=== PATIENT | female | born 1995 | race Caucasian/White ===

== ENCOUNTER 2016-11-16 22:05 | Emergency (ER) | payer OTHER ==
[2016-11-16 22:13] VITALS: BP 116/65; PULSE 83; RESP 18; TEMP 98.1
--- NOTE | 2016-11-16 22:22 | ED ---
Upper Extremity HPI - General Chief Complaint: Extremity Injury, Upper Stated Complaint: fall/elbow injury Time Seen by Provider: 11/16/16 22:14 Source: patient, RN notes reviewed Mode of arrival: ambulatory Limitations: no limitations - History of Present Illness Initial Comments: 21-year-old female presents to the emergency Department chief complaint of right elbow pain. Patient states that she fell onto her right elbow. Patient states she felt a pop. Patient states now has pain on movement. Patient states he was a slip and fall there is no lightheadedness and dizziness before the fall. Patient denies any head injury or loss of consciousness with fall. Patient states that she was concerned due to her continued symptoms so she thought that she should be evaluated. Patient denies any recent fever, chills, shortness of breath, chest pain, back pain, abdominal pain, nausea vomiting, numbness or tingling, dysuria or hematuria, constipation or diarrhea, headaches or visual changes, or any other current symptoms. Place: outdoors - Related Data Home Medications Medication Instructions Recorded Confirmed Pnv with Ca,No.72/Iron/FA 1 each PO DAILY 06/22/16 07/04/16 [ Plus Tablet] valACYclovir HCL [Valtrex] 500 mg PO DAILY 06/26/16 07/04/16 Previous Rx's Medication Instructions Recorded Ibuprofen [Motrin] 600 mg PO Q6HR PRN #0 tab 07/05/16 Allergies Allergy/AdvReac Type Severity Reaction Status Date / Time amoxicillin Allergy Rash/Hives Verified 11/16/16 22:13 codeine Allergy Unknown Verified 11/16/16 22:13 Penicillins Allergy Rash/Hives Verified 11/16/16 22:13 Review of Systems ROS Statement: Those systems with pertinent positive or pertinent negative responses have been documented in the HPI. ROS Other: All systems not noted in ROS Statement are negative. Past Medical History Past Medical History: No Reported History Additional Past Medical History / Comment(s): HERPES VIRUS, Bipolar History of Any Multi-Drug Resistant Organisms: None Reported Past Surgical History: Tonsillectomy Additional Past Surgical History / Comment(s): Oral Surgery, VTOPx 2 2013,2015 Past Anesthesia/Blood Transfusion Reactions: No Reported Reaction Past Psychological History: Bipolar Smoking Status: Current every day smoker Past Alcohol Use History: None Reported Past Drug Use History: None Reported - Past Family History Father Additional Family Medical History / Comment(s): Heart Disease General Exam - General Exam Comments Initial Comments: General: The patient is awake and alert, in no distress, and does not appear acutely ill. Neck: The neck is supple, there is no tenderness. Cardiovascular: There is a regular rate and rhythm. No murmur, rub or gallop is appreciated. Respiratory: Lungs are clear to auscultation, respirations are non-labored, breath sounds are equal. No wheezes, stridor, rales, or rhonchi. Musculoskeletal: Patient has 2+ pulses throughtout right upper extremity full Range of motion of right shoulder and right elbow and right wrist. Patient has no bony tenderness no deformity no abrasion noted. Neurological: CN II-XII intact, There are no obvious motor or sensory deficits. Coordination appears grossly intact. Speech is normal. Skin: Skin is warm and dry and no rashes or lesions are noted. Psychiatric: Normal mood and affect. Limitations: no limitations Course Vital Signs 11/16/16 22:10 Temperature 98.1 F Pulse Rate 83 Respiratory 18 Rate Blood Pressure 116/65 O2 Sat by Pulse 98 Oximetry Procedures - Orthopedic Splinting/Casting Injury #1 Side: right Upper Extremity Injury Location: elbow Upper Extremity Immobilizer: posterior splint (long arm) Medical Decision Making - Medical Decision Making 21-year-old female presents emergency room chief complaint of right elbow pain. This time patient's x-ray shows suspicion for acute fracture. We discussed ice Motrin Tylenol. We discussed return parameters and follow-up. We discussed all the patient's family's questions. This follow-up with orthopedics. They will be discharged home. - Radiology Data Radiology results: report reviewed, image reviewed Disposition Clinical Impression: Elbow fracture, right Disposition: HOME SELF-CARE Condition: Stable Instructions: Arm Fracture in Adults (ED) Additional Instructions: Please use medication as discussed. Please follow up with family doctor if symptoms have not improved over the next two days. Please return to the emergency room if your symptoms increase or worsen or for any other concerns. Referrals: Tila Porter MD [Primary Care Provider] - 1-2 days Jeramy Mckeon DO [Doctor of Osteopathic Medicine] - 1-2 days Time of Disposition: 22:49
--- NOTE | 2016-11-16 22:47 | XR ---
EXAM: XR Right Elbow Complete, 3 Views CLINICAL HISTORY: Pain after fall. TECHNIQUE: Frontal, lateral and oblique views of the right elbow. COMPARISON: No relevant prior studies available. FINDINGS: Bones/joints: Suspect subtle cortical irregularity along the lateral aspect of the radial head on AP and oblique images suspicious for subtle fracture. No radiographic evidence of additional fracture. No dislocation. Soft tissues: Small right elbow joint effusion is present. Mild soft tissue swelling. IMPRESSION: Small right elbow joint effusion is present which raises suspicion for fracture. Suspect subtle cortical irregularity along the lateral aspect of the radial head on AP and oblique images suspicious for subtle fracture. Correlate for point tenderness at this location. No radiographic evidence of additional fracture.
== END 2016-11-16 22:58 | disposition home or self-care (01) ==
LOC: EC 22:05
DX: S42.401A Unspecified fracture of lower end of right humerus, initial encounter for closed fracture (principal); F17.200 Nicotine dependence, unspecified, uncomplicated; Z88.0 Allergy status to penicillin; Z88.5 Allergy status to narcotic agent; Z79.899 Other long term (current) drug therapy; W01.0XXA Fall on same level from slipping, tripping and stumbling without subsequent striking against object, initial encounter
CPT/HCPCS: 29105; 99283

== ENCOUNTER 2016-12-13 15:12 | Inpatient (IN) | payer OTHER, MEDICAID ==
--- NOTE | 2016-12-13 15:44 | ED ---
Psych HPI - General Chief Complaint: Psychiatric Symptoms Stated Complaint: Evaluation/Drug use Time Seen by Provider: 12/13/16 15:34 Source: patient, RN notes reviewed Mode of arrival: ambulatory Limitations: no limitations - History of Present Illness Initial Comments: This a 21-year-old female presents emergency department for psychiatric evaluation. Patient states she is really depressed states that she wants to kill herself at this time. Patient states that she has felt this way for several years. Patient does abuse heroin daily. Patient states that she did "when she had her baby was started approximately one month after delivering. Patient denies any alcohol abuse. Patient has had several possible ways of hurting herself. Patient denies any homicidal thoughts. Denies any physical complaints other than withdrawing at this time. - Related Data Home Medications Medication Instructions Recorded Confirmed No Known Home Medications [No 12/13/16 12/13/16 Known Home Medications] Allergies Allergy/AdvReac Type Severity Reaction Status Date / Time amoxicillin Allergy Rash/Hives Verified 12/13/16 15:59 codeine Allergy Unknown Verified 12/13/16 15:59 Penicillins Allergy Rash/Hives Verified 12/13/16 15:59 Review of Systems ROS Statement: Those systems with pertinent positive or pertinent negative responses have been documented in the HPI. ROS Other: All systems not noted in ROS Statement are negative. Past Medical History Past Medical History: No Reported History Additional Past Medical History / Comment(s): HERPES VIRUS, Bipolar , IVDA History of Any Multi-Drug Resistant Organisms: None Reported Past Surgical History: Tonsillectomy Additional Past Surgical History / Comment(s): Oral Surgery, VTOPx 2 2013,2015 Past Anesthesia/Blood Transfusion Reactions: No Reported Reaction Past Psychological History: Bipolar Smoking Status: Current every day smoker Past Alcohol Use History: None Reported Past Drug Use History: Heroin - Past Family History Father Additional Family Medical History / Comment(s): Heart Disease General Exam Limitations: no limitations General appearance: alert, in no apparent distress Head exam: Present: atraumatic, normocephalic, normal inspection Eye exam: Present: normal appearance, PERRL, EOMI. Absent: scleral icterus, conjunctival injection, periorbital swelling ENT exam: Present: normal exam, normal oropharynx, mucous membranes moist Neck exam: Present: normal inspection. Absent: tenderness, meningismus, lymphadenopathy Respiratory exam: Present: normal lung sounds bilaterally. Absent: respiratory distress, wheezes, rales, rhonchi, stridor Cardiovascular Exam: Present: regular rate, normal rhythm, normal heart sounds. Absent: systolic murmur, diastolic murmur, rubs, gallop, clicks GI/Abdominal exam: Present: soft, normal bowel sounds. Absent: distended, tenderness, guarding, rebound, rigid Extremities exam: Absent: normal inspection (Multiple track guallpa noted in both arms) Neurological exam: Present: alert, oriented X3, CN II-XII intact Psychiatric exam: Present: depressed Skin exam: Present: warm, dry, intact, normal color. Absent: rash Course Vital Signs 12/13/16 15:15 Temperature 97.9 F Pulse Rate 86 Respiratory 20 Rate Blood Pressure 134/66 O2 Sat by Pulse 97 Oximetry Medical Decision Making - Lab Data Lab Results 12/13/16 Range/Units 17:15 Urine Opiates Screen Detected H (NotDetected) Ur Oxycodone Screen Not Detected (NotDetected) Urine Methadone Screen Not Detected (NotDetected) Ur Propoxyphene Screen Not Detected (NotDetected) Ur Barbiturates Screen Not Detected (NotDetected) U Tricyclic Antidepress Not Detected (NotDetected) Ur Phencyclidine Scrn Not Detected (NotDetected) Ur Amphetamines Screen Not Detected (NotDetected) U Methamphetamines Scrn Not Detected (NotDetected) U Benzodiazepines Scrn Not Detected (NotDetected) Urine Cocaine Screen Detected H (NotDetected) U Marijuana (THC) Screen Not Detected (NotDetected) Disposition Clinical Impression: Depression, Suicidal ideation, Polysubstance abuse Disposition: ADMITTED IP TO THIS HOSP Condition: Stable Referrals: Tila Porter MD [STAFF PHYSICIAN] - 1-2 days
[2016-12-13] MEDS ORDERED: MAG HYDROX/AL HYDROX/SIMETH 30 ML CUP PO PRN (19:30)
[2016-12-13] MEDS ORDERED: ACETAMINOPHEN TAB 325 MG TAB PO PRN (19:30)
[2016-12-13] MEDS ORDERED: MAGNESIUM HYDROXIDE 2,400 MG/10 ML CUP PO PRN (19:30)
[2016-12-13] MEDS ORDERED: ONDANSETRON ODT 4 MG TAB PO STA (19:38)
[2016-12-13] MEDS: LORazepam 1 MG TAB PO PRN (20:29)
[2016-12-13] MEDS: NICOTINE 21MG/24HR PATCH TRANSDERM SCH (20:30)
[2016-12-14] MEDS: LORazepam 1 MG TAB PO PRN (08:32)
[2016-12-14] MEDS: NICOTINE 21MG/24HR PATCH TRANSDERM SCH (08:33)
[2016-12-14 08:37] LABS: Basophils # (A) 0.1 k/uL (0-0.2); Basophils % (A) 1 %; CH 28.2; CHCM 32.7; Eosinophils # (A) 0.4 k/uL (0-0.7); Eosinophils % (A) 4 %; HCT 45.4 % (34.0-46.0); HGB 14.6 gm/dL (11.4-16.0); Luc # (Auto) 0.19; Luc % (Auto) 2; Lymphocytes # (A) 2.2 k/uL (1.0-4.8); Lymphocytes % (A) 22 %; MCH 27.8 pg (25.0-35.0); MCHC 32.1 g/dL (31.0-37.0); MCV 86.4 fL (80.0-100.0); Mean Platelet Volume 6.6; Monocytes # (A) 0.4 k/uL (0-1.0); Monocytes % (A) 4 %; Neutrophils # (A) 6.5 k/uL (1.3-7.7); Neutrophils % (A) 67 %; RBC 5.26 m/uL (3.80-5.40); RDW 13.5 % (11.5-15.5); WBC 9.7 k/uL (4.0-11.0); WBC (Perox) 9.55
[2016-12-14 08:53] LABS: ALT 22 U/L (9-52); AST 16 U/L (14-36); Alkaline Phosphatase 92 U/L (38-126); Anion Gap 11 mmol/L; Blood Urea Nitrogen 10 mg/dL (7-17); Calcium 9.7 mg/dL (8.4-10.2); Carbon Dioxide 25 mmol/L (22-30); Chloride 106 mmol/L (98-107); Glucose 102 mg/dL (74-99); Non-African American GFR(MDRD) >60 (>60 ml/min/1.73 sqM); Potassium 4.5 mmol/L (3.5-5.1); Sodium 142 mmol/L (137-145); Total Bilirubin 0.6 mg/dL (0.2-1.3); Total Protein 7.6 g/dL (6.3-8.2)
[2016-12-14] MEDS: cloNIDine HCL 0.1 MG TAB PO PRN (11:03)
[2016-12-14] MEDS: hydrOXYzine PAMOATE 25 MG CAP PO PRN (14:10)
[2016-12-14] MEDS: LORazepam 0.5 MG TAB PO PRN ×2 (14:15→22:19)
--- NOTE | 2016-12-14 14:17 | P.MDCNMH ---
History of Present Illness H&P Date: 12/14/16 Chief Complaint: depression with suicidal ideation/heroin abuse. this is a 21-year-old female with no previous medical history who was admitted to the hospital to [facility] through the emergency department yesterday because of increased depression and suicidal ideation because of heroin abuse and she is trying to shoot more than 3-4 g as much as she can to try to kill herself yesterday due to severe depression and suicidal ideation, she ended up coming to the ER at [facility] and she was seen and evaluated by the mental health unit nurse and she was admitted to the mental health unit for evaluation and treatment. Patient is sitting up in a chair she is complaining of increased abdominal pain associated with nausea and one episode of vomiting she did have a diary as well for which she was placed on treatment plan for her withdrawal. Review of Systems Constitutional: Reports chills, Reports malaise, Reports poor appetite, Reports weakness, Denies chronic pain, Denies fever, Denies lethargy Eyes: denies blurred vision, denies bulging eye, denies decreased vision, denies diplopia Ears: deny: decreased hearing Cardiovascular: Denies chest pain, Denies decreased exercise tolerance, Denies dyspnea on exertion, Denies high blood pressure, Denies phlebitis, Denies rapid heart beat, Denies shortness of breath Respiratory: Denies congestion, Denies cough, Denies home oxygen, Denies sleep apnea, Denies snoring, Denies wheezing Gastrointestinal: Reports abdominal pain, Reports diarrhea, Reports excessive gas, Reports loss of appetite, Reports nausea, Reports vomiting, Denies change in bowel habits, Denies coffee ground emesis, Denies melena Genitourinary: Denies dysuria, Denies hematuria Menstruation: Reports period normal Musculoskeletal: Denies myalgias Musculoskeletal: absent: ankle pain, ankle stiffness, ankle swelling, elbow pain , elbow stiffness, elbow swelling, foot pain, foot stiffness, foot swelling, hand pain, hand stiffness, hand swelling, hip pain, hip stiffness, hip swelling , knee pain, knee stiffness, knee swelling, shoulder pain, shoulder stiffness, shoulder swelling, wrist pain, wrist stiffness, wrist swelling Integumentary: Denies pruritus, Denies rash Neurological: Denies numbness, Denies weakness Psychiatric: Reports anxiety, Reports depression, Reports sadness/tearfulness, Reports sleep disturbances, Reports suicidal ideation Endocrine: Denies fatigue, Denies weight change Past Medical History Past Medical History: No Reported History Additional Past Medical History / Comment(s): HERPES VIRUS, Bipolar , IVDA History of Any Multi-Drug Resistant Organisms: None Reported Past Surgical History: Tonsillectomy Additional Past Surgical History / Comment(s): Oral Surgery, VTOPx 2 2013,2016 Past Anesthesia/Blood Transfusion Reactions: No Reported Reaction Past Psychological History: Bipolar Smoking Status: Current every day smoker (patient smokes about a pack every day started when she was 41-year-old.) Past Alcohol Use History: None Reported Past Drug Use History: Cocaine ( patient smokes crack), Heroin ( patient is about 3-4 g on a daily basis injected to the right upper extremity.) - Past Family History Father Family Medical History: Coronary Artery Disease (CAD) ( bilateral father is in his early 40s and history of CAD,) Additional Family Medical History / Comment(s): Heart Disease Mother Family Medical History: No Reported History ( mother is 43-year-old has no major medical problems, her maternal grandmother as well as her aunts have cervical cancer.) Sister(s) Family Medical History: No Reported History ( patient has 2 sisters no major medical problems) Son(s) Family Medical History: No Reported History ( she has one son 5 months old lives with her currently with her mother) Medications and Allergies Home Medications Medication Instructions Recorded Confirmed Type No Known Home Medications [No 12/13/16 12/13/16 History Known Home Medications] Allergies Allergy/AdvReac Type Severity Reaction Status Date / Time amoxicillin Allergy Rash/Hives Verified 12/13/16 15:59 codeine Allergy Unknown Verified 12/13/16 15:59 Penicillins Allergy Rash/Hives Verified 12/13/16 15:59 Physical Exam Vitals: Vital Signs Temp Pulse Pulse Resp BP BP Pulse Ox 12/14/16 06:46 98.3 F 81 20 113/55 12/14/16 05:18 98.2 F 72 16 103/57 12/13/16 20:31 89 16 110/73 12/13/16 19:35 97.6 F 76 15 121/58 97 12/13/16 15:15 97.9 F 86 20 134/66 97 Intake and Output 12/13/16 12/14/16 12/14/16 22:59 06:59 14:59 Other: Weight 68.039 kg - Constitutional General appearance: thin - EENT Eyes: anicteric sclerae, EOMI, PERRLA, no ptosis, no scleral icterus, normal appearance ENT: NA/AT, normal oropharynx, no thrush Ears: bilateral: normal - Neck Neck: no lymphadenopathy, normal ROM, no rigidity, no stridor, no thyromegaly Carotids: bilateral: upstroke normal Thyroid: bilateral: normal size - Respiratory Respiratory: bilateral: diminished, negative: dullness, rales, rhonchi, wheezing , prolonged expiration - Cardiovascular Rhythm: regular Heart sounds: normal: S1, S2 Abnormal Heart Sounds: no rub, no S3 Gallop, no S4 Gallop, no click - Gastrointestinal General gastrointestinal: normal bowel sounds, no soft, no splenomegaly, no tenderness, no umbilical hernia, no ventral hernia - Integumentary Integumentary: normal, normal turgor - Neurologic Neurologic: CNII-XII intact - Musculoskeletal Musculoskeletal: generalized weakness, strength equal bilaterally - Psychiatric Psychiatric: A&O x's 3, no appropriate affect, no intact judgment & insight Cranial Nerve Examination - Cranial Nerves Cranial Nerve I- Olfactory: Intact Cranial Nerve II- Optic: Intact Cranial Nerve III- Oculomotor: Intact Cranial Nerve IV- Trochlear: Intact Cranial Nerve V- Trigeminal: Intact Cranial Nerve - Abducens: Intact Cranial Nerve VII- Facial: Intact Cranial Nerve VIII- Auditory: Intact Cranial Nerve IX- Glossopharyngeal: Intact Cranial Nerve X- Vagus: Intact Cranial Nerve XI- Accessory: Intact Cranial Nerve XII- Hypoglossal: Intact Results CBC & Chem 7: 12/14/16 08:09 12/14/16 08:09 Labs: Abnormal Lab Results - Last 24 Hours (Table) 12/13/16 12/14/16 Range/Units 17:15 08:09 Glucose 102 H (74-99) mg/dL TSH 0.128 L (0.465-4.680) mIU/L Urine Opiates Screen Detected H (NotDetected) Urine Cocaine Screen Detected H (NotDetected) Assessment and Plan Plan: assessment and plan: 1. depression with suicidal ideation. continue patient on Wellbutrin 100 mg orally once every day, Ativan 0.5 mg orally every 8 hours as needed, continue patient on current therapy including suicidal precautions. 2. chronic tobacco use and dependence. Continue patient on nicotine patch. 3. history of herpes simplex type II. Currently in remission. 4. History of heroin abuse with IVDU. patient was counseled about abstinence from drugs. check for hepatitis B and hepatitis C. 5. Insomnia. Continue trazodone 100 mg at bedtime. 6. thanks for the consult we will follow with you.
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
[2016-12-14] MEDS ORDERED: traZODone HCL 100 MG TAB PO SCH (21:00)
[2016-12-15 06:20] LABS: Hepatitis B Core IgM Index 0.04
[2016-12-15 06:31] LABS: Hepatitis C Virus IgG Ab Reactive (Negative); Hepatitis C Virus IgG Index 1.12
[2016-12-15 06:56] VITALS: RESP 16
[2016-12-15] MEDS: LORazepam 0.5 MG TAB PO PRN (08:02)
[2016-12-15] MEDS: NICOTINE 21MG/24HR PATCH TRANSDERM SCH (09:57)
[2016-12-15] MEDS: buPROPion SR 100 MG TABLET.ER PO SCH (09:58)
[2016-12-15] MEDS: hydrOXYzine PAMOATE 25 MG CAP PO PRN ×2 (10:00→16:12)
--- NOTE | 2016-12-15 15:12 | P.PN ---
Progress Note - Text INTERVERAL HISTORY: Patient was seen ,discussed in treatment team ,very motivated to pursue SA rehab. ,denies any current suicidal ideation ,denies any opium withdrawals symptoms ,still feeling tired ,no energy and endorses high anxiety especially at night.Patient reports poor sleep :trouble falling asleep and does not feel rested ,has been participating in most of groups and activities Reviewed medical consult and Labs;Hepatitis C reactive ,TSH:low ,reconsult medicine for medical management MENTAL STATUS EXAM The patient presents with adequate hygiene ,fair grooming, eye contact is appropriate speech is spontaneous. Stated mood"ANXIOUS" , affect is appropriate, she reports no suicidal or homicidal ideation intent or plan, she does not appear to be experiencing symptoms of psychosis. Thought process is linear and goal directed .Insight and judgment are improving PLAN: Continue inpatient psychiatric admission for safety purposes, discontinue Ativan ,change Trazodone to Remeron to restore her sleep ,family meeting Tomorrow ,will order special visitation with her 5 months old son ,waiting for medicine recommendation,most likely discharge Tomorrow after family meeting
[2016-12-15] MEDS: cloNIDine HCL 0.1 MG TAB PO PRN (16:12)
[2016-12-15] MEDS ORDERED: MIRTAZAPINE 15 MG TAB PO SCH (21:00)
[2016-12-16 06:52] VITALS: BP 102/53; PULSE 70; TEMP 98.1
[2016-12-16 07:38] LABS: HIV-1/HIV-2 Ab Screen NONREAC (NON REAC)
[2016-12-16] MEDS: buPROPion SR 100 MG TABLET.ER PO SCH (08:33)
[2016-12-16] MEDS: NICOTINE 21MG/24HR PATCH TRANSDERM SCH (08:33)
[2016-12-16] MEDS ORDERED: hydrOXYzine PAMOATE 25 MG CAP PO PRN (08:49)
--- NOTE | 2016-12-17 15:46 | DS ---
DATE OF ADMISSION: 12/13/2016 DATE OF DISCHARGE: 12/16/2016 Counseling physician: Migel. Consulting provider: Dr. Myles Chne. Consult reason: For medical management. Do you want consulting provider notified: Yes. DISCHARGE DIAGNOSES: 1. Major depression disorder, recurrent, mild to moderate, without psychosis in early remission. 2. Polysubstance use disorder. 3. Opium, cocaine and marijuana. 4. Anxiety disorder, unspecified. 5. Hepatitis C is reactive and positive and she has TSH low. BRIEF SUMMARY OF THE ADMISSION NOTE: The patient was admitted to the mental health unit from the emergency room on voluntary basis for depression and suicidal ideation and heroin withdrawal symptoms. For complete social history, substance abuse history, please refer to my initial psychiatric eval. SUMMARY OF THE HOSPITAL COURSE: Patient was admitted to the mental health unit on voluntary basis. Once she was she was seen, I did review with her, her symptoms, anxiety and psychiatric medication option. Initially she was on Ativan and Catapres for withdrawal symptoms, then after 24 hours, I did completely discontinue the Ativan to avoid any habit-forming medication and she was started on Catapres. As she was complaining of feeling tired, not motivated, no ambition, she was started on 100 mg daily and trazodone at bedtime. Patient stated that trazodone did not help her sleep, so I discontinued trazodone and I started her on Remeron and she was able to sleep 6 to 7 hours at night. Patient was very open up in one-to-one session and she stated that she has tendency to use her mother's Xanax since age 15 or 16, as she has been having social phobia, but I did have a lengthy discussion with her regarding the cross addiction and she was very receptive and verbalized understanding and she did agree to try Vistaril as needed for anxiety. Patient was able to contact [facility] and she was accepted to start inpatient substance abuse program on December 22 and she was excited as she is allowed to have her baby with her. Patient was very concerned as she was promiscuous for the last 4 weeks without any protection, so we did check her lab for HIV and hepatitis. She came negative for HIV, but hepatitis C is reactive. While one the mental health unit, patient was very active, ( ) attending every group. viscosity worker does have a family meeting scheduled with patient's mother this afternoon. MENTAL STATUS EXAMINATION AT THE TIME OF THE DISCHARGE: Patient is alert, seated calmly, good eye contact. Hygiene and grooming are adequate. Speech is spontaneous, coherent. Thought process is linear and goal directed. She denied any feeling of hopeless or helpless. She denied any sleeping or appetite problem. She denied any homicidal or suicidal ideation. There is no evidence of hypomania or gillian. There is no evidence of psychosis. Insight and judgment are improving. Cognitive ability has remained stable across her hospitalization and she is alert, oriented x3. LABS: All her labs are within normal limits except TSH is 0.128 low, urine drug screen is positive for opiate and cocaine. Hepatitis C is reactive. PLAN: 1. The patient will be discharged from the mental health unit today to return back home to stay with her mother and her son who is 5 months old. ( ) following support family meeting. 2. Patient was given one month supply of Wellbutrin 100 mg daily, Remeron 15 mg at bedtime for sleep. Nicotine patch for smoking cessation and Vistaril p.r.n. for anxiety. 3. Patient was instructed to maintain abstinence from any heroin cocaine or any illicit drug use. 4. Patient has intake on appointment for inpatient admission to [facility] on December 22. 5. Patient has to follow up with her primary care physician for medical management of her low TSH and her hepatitis C. 6. There is no eminent safety risk and patient is appropriate for transition to outpatient care. She was instructed to return to the emergency room if any acute safety concerns. Patient's condition at the time of the discharge stable.
== END 2016-12-16 14:35 | disposition home or self-care (01) | DRG 885 ==
LOC: EC 15:12 → 3MHU 19:20
PROVIDERS: ADMIT Psychiatry & Neurology Psychiatry; ATTEND Psychiatry & Neurology Psychiatry
DX: F33.1 Major depressive disorder, recurrent, moderate (principal); R45.851 Suicidal ideations; F11.23 Opioid dependence with withdrawal; Z88.0 Allergy status to penicillin; Z88.5 Allergy status to narcotic agent; F17.200 Nicotine dependence, unspecified, uncomplicated; B19.20 Unspecified viral hepatitis C without hepatic coma; F41.0 Panic disorder [episodic paroxysmal anxiety]; Z81.8 Family history of other mental and behavioral disorders; Z91.5 Personal history of self-harm; Z79.899 Other long term (current) drug therapy; F14.14 Cocaine abuse with cocaine-induced mood disorder; F11.24 Opioid dependence with opioid-induced mood disorder; Z71.51 Drug abuse counseling and surveillance of drug abuser; G47.00 Insomnia, unspecified; B00.9 Herpesviral infection, unspecified
CPT/HCPCS: 80053; 80074; 80306; 82075; 84443; 85025; 87389; 99285

== ENCOUNTER 2017-05-25 19:54 | Observation (INO) | payer OTHER ==
[2017-05-25] MEDS ORDERED: SODIUM CHLORIDE 0.9% 1,000 ML IV STA (20:41)
[2017-05-25 21:15] LABS: Anisocytosis Slight; Basophils # (A) 0.1 k/uL (0-0.2); Basophils % (A) 1 %; CH 27.8; CHCM 32.9; Eosinophils # (A) 0.3 k/uL (0-0.7); Eosinophils % (A) 3 %; HCT 42.9 % (34.0-46.0); HDW 2.39; HGB 14.3 gm/dL (11.4-16.0); Luc # (Auto) 0.13; Luc % (Auto) 1; Lymphocytes # (A) 1.8 k/uL (1.0-4.8); Lymphocytes % (A) 17 %; MCH 28.2 pg (25.0-35.0); MCHC 33.3 g/dL (31.0-37.0); MCV 84.9 fL (80.0-100.0); Mean Platelet Volume 7.1; Monocytes # (A) 0.5 k/uL (0-1.0); Monocytes % (A) 5 %; Neutrophils # (A) 7.3 k/uL (1.3-7.7); Neutrophils % (A) 72 %; RBC 5.05 m/uL (3.80-5.40); RDW 17.5 % (11.5-15.5); WBC 10.2 k/uL (3.8-10.6); WBC (Perox) 10.23
[2017-05-25 21:20] LABS: Appearance,Urine Clear (Clear); Bacteria,Urine Rare /hpf; Bilirubin,Urine Negative (Negative); Glucose,Urine (UA) Negative (Negative); Ketones,Urine Negative (Negative); Leukocyte Esterase,Urine Trace (Negative); Mucus,Urine Rare /hpf; Nitrite,Urine Negative (Negative); PH, Urine 5.5 (5.0-8.0); Particle Count 4376; Protein,Urine Trace (Negative); RBC,Urine 1 /hpf (0-5); Specific Gravity,Urine 1.022 (1.001-1.035); Squamous Epithelial Cell,Urine 10 /hpf (0-4); UA Billing (MACRO vs. MICRO) MICRO; Urobilinogen,Urine <2.0 mg/dL (<2.0); WBC,Urine 3 /hpf (0-5)
[2017-05-25 21:24] LABS: ALT 31 U/L (9-52); AST 22 U/L (14-36); Alkaline Phosphatase 85 U/L (38-126); Anion Gap 10 mmol/L; Blood Urea Nitrogen 16 mg/dL (7-17); Calcium 9.7 mg/dL (8.4-10.2); Carbon Dioxide 24 mmol/L (22-30); Chloride 107 mmol/L (98-107); Glucose 93 mg/dL (74-99); Non-African American GFR(MDRD) >60 (>60 ml/min/1.73 sqM); Potassium 4.3 mmol/L (3.5-5.1); Sodium 141 mmol/L (137-145); Total Bilirubin 0.2 mg/dL (0.2-1.3); Total Protein 7.6 g/dL (6.3-8.2)
--- NOTE | 2017-05-25 21:24 | ED ---
Seizure HPI - General Chief Complaint: Seizure Stated Complaint: seizure Time Seen by Provider: 05/25/17 20:19 Source: patient, RN notes reviewed, old records reviewed Mode of arrival: EMS Limitations: no limitations - History of Present Illness Initial Comments: Patient is a 22-year-old female present the emergency department with parents chief complaint of new onset seizure. Patient reports that she was sitting outside smoking a cigarette, when she fell to the ground. Apparently patient had seizure-like activity witnessed by the parents for approximately 1 minute. Afterwards she woke up somewhat combative and confused. She did settle down at that point. They called and notes that she was brought here. No family history of seizures, she reports that she's on multiple medications for depression. She is also on the ventral injection. Patient states that she has no fever or chills, chest pain shortness of breath, nausea or vomiting or headaches. She reports that she just feels somewhat tired and fatigued at this time. - Related Data Home Medications Medication Instructions Recorded Confirmed Mirtazapine [Remeron] 45 mg PO HS 05/25/17 05/25/17 Naltrexone Microspheres [Vivitrol] 380 mg IM Q28D 05/25/17 05/25/17 buPROPion HCL [Wellbutrin SR] 150 mg PO BID 05/25/17 05/25/17 hydrOXYzine PAMOATE [Vistaril] 100 mg PO TID 05/25/17 05/25/17 Allergies Allergy/AdvReac Type Severity Reaction Status Date / Time amoxicillin Allergy Rash/Hives Verified 05/25/17 20:19 codeine Allergy Unknown Verified 05/25/17 20:19 Penicillins Allergy Rash/Hives Verified 05/25/17 20:19 Review of Systems ROS Statement: Those systems with pertinent positive or pertinent negative responses have been documented in the HPI. ROS Other: All systems not noted in ROS Statement are negative. Past Medical History Past Medical History: No Reported History Additional Past Medical History / Comment(s): HERPES VIRUS, Bipolar , IVDA History of Any Multi-Drug Resistant Organisms: None Reported Past Surgical History: Tonsillectomy Additional Past Surgical History / Comment(s): Oral Surgery, VTOPx 2 2013,2016 Past Anesthesia/Blood Transfusion Reactions: No Reported Reaction Past Psychological History: Bipolar Smoking Status: Current every day smoker Past Alcohol Use History: None Reported Past Drug Use History: Cocaine, Heroin - Past Family History Father Family Medical History: Coronary Artery Disease (CAD) ( bilateral father is in his early 40s and history of CAD,) Additional Family Medical History / Comment(s): Heart Disease Mother Family Medical History: No Reported History ( mother is 43-year-old has no major medical problems, her maternal grandmother as well as her aunts have cervical cancer.) Sister(s) Family Medical History: No Reported History ( patient has 2 sisters no major medical problems) Son(s) Family Medical History: No Reported History ( she has one son 5 months old lives with her currently with her mother) General Exam - General Exam Comments Initial Comments: 22-year-old female. Patient is alert and oriented 4. No acute distress. Limitations: no limitations General appearance: alert, in no apparent distress Head exam: Present: atraumatic, normocephalic, normal inspection Eye exam: Present: normal appearance, PERRL, EOMI. Absent: scleral icterus, conjunctival injection, periorbital swelling ENT exam: Present: normal exam, mucous membranes moist Neck exam: Present: normal inspection, full ROM. Absent: tenderness, meningismus, lymphadenopathy Respiratory exam: Present: normal lung sounds bilaterally. Absent: respiratory distress, wheezes, rales, rhonchi, stridor Cardiovascular Exam: Present: regular rate, normal rhythm, normal heart sounds. Absent: systolic murmur, diastolic murmur, rubs, gallop, clicks GI/Abdominal exam: Present: soft, normal bowel sounds. Absent: distended, tenderness, guarding, rebound, rigid Extremities exam: Present: normal inspection, full ROM, normal capillary refill. Absent: tenderness, pedal edema, joint swelling, calf tenderness Back exam: Present: normal inspection Neurological exam: Present: alert, oriented X3, CN II-XII intact Psychiatric exam: Present: normal affect, normal mood Skin exam: Present: warm, dry, intact, normal color. Absent: rash Course Vital Signs 05/25/17 05/25/17 05/25/17 20:06 22:00 23:00 Temperature 100.1 F H Pulse Rate 118 H 95 Respiratory 18 16 16 Rate Blood Pressure 137/64 O2 Sat by Pulse 98 98 Oximetry 05/25/17 23:49 Temperature 98.8 F Pulse Rate 81 Respiratory 16 Rate Blood Pressure 110/56 O2 Sat by Pulse 100 Oximetry Medical Decision Making - Medical Decision Making 22-year-old feel presents emergency Department chief complaint of new onset seizure. She was standing outside smoking a cigarette when she fell to the ground and had a 30 seconds to 1 minute of seizure-like episode. No family history of seizures, no personal history of seizures. Patient labwork was reviewed and within normal limits. Upon return to emergency Department chief had no headache, does not seem to be postictal, is alert and oriented 4. No neurological deficits. Patient has no meningeal signs. Patient is placed on seizure precautions. Discussed that her seizure could be related to her medications, she is on Vistaril, Remeron and Wellbutrin. She also take a Benadryl shot. Discussed that she should follow-up with neurology. Patient states that she still concern. I did offer for observation admission and further evaluation. Patient's family states that they would like to have her admitted as well. Patient did under observation. Discussed with Dr. Hunt. He discussed this with Dr. Mejia. - Lab Data Result diagrams: 05/25/17 21:00 05/25/17 21:00 Lab Results 05/25/17 05/25/17 05/25/17 Range/Units 21:00 21:00 21:00 WBC 10.2 (3.8-10.6) k/uL RBC 5.05 (3.80-5.40) m/uL Hgb 14.3 (11.4-16.0) gm/dL Hct 42.9 (34.0-46.0) % MCV 84.9 (80.0-100.0) fL MCH 28.2 (25.0-35.0) pg MCHC 33.3 (31.0-37.0) g/dL RDW 17.5 H (11.5-15.5) % Plt Count 236 (150-450) k/uL Neutrophils % 72 % Lymphocytes % 17 % Monocytes % 5 % Eosinophils % 3 % Basophils % 1 % Neutrophils # 7.3 (1.3-7.7) k/uL Lymphocytes # 1.8 (1.0-4.8) k/uL Monocytes # 0.5 (0-1.0) k/uL Eosinophils # 0.3 (0-0.7) k/uL Basophils # 0.1 (0-0.2) k/uL Anisocytosis Slight Sodium 141 (137-145) mmol/L Potassium 4.3 (3.5-5.1) mmol/L Chloride 107 (98-107) mmol/L Carbon Dioxide 24 (22-30) mmol/L Anion Gap 10 mmol/L BUN 16 (7-17) mg/dL Creatinine 0.67 (0.52-1.04) mg/dL Est GFR (MDRD) Af Amer >60 (>60 ml/min/1.73 sqM) Est GFR (MDRD) Non-Af >60 (>60 ml/min/1.73 sqM) Glucose 93 (74-99) mg/dL Calcium 9.7 (8.4-10.2) mg/dL Total Bilirubin 0.2 (0.2-1.3) mg/dL AST 22 (14-36) U/L ALT 31 (9-52) U/L Alkaline Phosphatase 85 (38-126) U/L Total Protein 7.6 (6.3-8.2) g/dL Albumin 4.2 (3.5-5.0) g/dL Urine Color Yellow Urine Appearance Clear (Clear) Urine pH 5.5 (5.0-8.0) Ur Specific [place] 1.022 (1.001-1.035) Urine Protein Trace H (Negative) Urine Glucose (UA) Negative (Negative) Urine Ketones Negative (Negative) Urine Blood Negative (Negative) Urine Nitrite Negative (Negative) Urine Bilirubin Negative (Negative) Urine Urobilinogen <2.0 (<2.0) mg/dL Ur Leukocyte Esterase Trace H (Negative) Urine RBC 1 (0-5) /hpf Urine WBC 3 (0-5) /hpf Ur Squamous Epith Cells 10 H (0-4) /hpf Urine Bacteria Rare H (None) /hpf Urine Mucus Rare H (None) /hpf Urine Opiates Screen Not Detected (NotDetected) Ur Oxycodone Screen Not Detected (NotDetected) Urine Methadone Screen Not Detected (NotDetected) Ur Propoxyphene Screen Not Detected (NotDetected) Ur Barbiturates Screen Not Detected (NotDetected) U Tricyclic Antidepress Not Detected (NotDetected) Ur Phencyclidine Scrn Not Detected (NotDetected) Ur Amphetamines Screen Not Detected (NotDetected) U Methamphetamines Scrn Not Detected (NotDetected) U Benzodiazepines Scrn Not Detected (NotDetected) Urine Cocaine Screen Not Detected (NotDetected) U Marijuana (THC) Screen Not Detected (NotDetected) 05/25/17 22:52 EKG shows normal sinus rhythm. Rightward axis. Borderline EKG. Ventricular rate of 94 bpm. WI interval 142 ms. QRS duration 94 seconds. QT QTc is 382/ 477 ms. No evidence of ST elevation or T-wave inversion. No drainage or ventricular arrhythmias. - Radiology Data Radiology results: report reviewed CT brain is negative for any acute process. Disposition Clinical Impression: New onset seizure Disposition: ADMITTED IP TO THIS HOSP Condition: Stable Time of Disposition: 22:59
--- NOTE | 2017-05-25 21:45 | CT ---
EXAMINATION TYPE: CT brain wo con DATE OF EXAM: 05/25/2017 COMPARISON: NONE HISTORY: Patient complains of probable first time seizure today. Patient has no complaints at time o f study. CT DLP: 742.7 mGycm. Automated Exposure Control for Dose Reduction was Utilized. TECHNIQUE: CT scan of the head is performed without contrast. FINDINGS: There is no acute intracranial hemorrhage, mass effect, or midline shift identified. The ventricles and sulci are within normal limits in size. Osborne-white matter differentiation is maintai yari. The globes are intact and the visualized sinuses are clear. The calvarium is intact. IMPRESSION: No acute intracranial hemorrhage, mass effect, or midline shift is seen. Unremarkable st udy.
[2017-05-25] MEDS ORDERED: LORazepam 2 MG/ML INJ IV PRN (23:00)
[2017-05-25] MEDS ORDERED: IBUPROFEN 400 MG TAB PO PRN (23:00)
[2017-05-25] MEDS ORDERED: NALOXONE 0.4 MG/ML 1 ML VIAL IV PRN (23:00)
[2017-05-25] MEDS ORDERED: ACETAMINOPHEN TAB 325 MG TAB PO PRN (23:00)
[2017-05-25] MEDS ORDERED: ONDANSETRON 4 MG/2 ML VIAL IVP PRN (23:00)
[2017-05-25] MEDS ORDERED: IBUPROFEN 600 MG TAB PO STA (23:35)
--- NOTE | 2017-05-26 00:28 | P.HPIM ---
History of Present Illness H&P Date: 05/26/17 Chief Complaint: Seizure The patient is a 22-year-old female with a past with a history of heroin addiction currently on Vivitroll treatment who presents to the ER via EMS with her mother with complaints of new onset seizure that began earlier this evening. Apparently the patient was smoking a cigarette on her porch when her family heard a loud noise, on investigating the patient was noted to be incoherent, eyes rolled back, foaming at the mouth with all extremities shaking , patient was unresponsive. This episode lasted approximately 45 seconds, as is the patient's symptoms resolved she appeared fatigued and post ictal and confused. There is no reports of biting of the lip or tongue, no reports of loss of bowel or bladder control. There is no reports of any previous seizures, the patient currently denies any illicit drug use or alcoholism. He does have a history of depression and anxiety and insomnia and takes Wellbutrin Vistaril and Remeron respectively for these disorders. She reports being on vivotrol treatment for her heroin addiction for the last 3 months, only recent medicine changes as increased dose of her monthly Vivitrol treatment dosage. In the ER the patient had a normal admission labs and normal CT of her head Review of Systems All other 14 point review of systems negative except per HPI Past Medical History Past Medical History: No Reported History Additional Past Medical History / Comment(s): HERPES VIRUS, Bipolar , IVDA History of Any Multi-Drug Resistant Organisms: None Reported Past Surgical History: Tonsillectomy Additional Past Surgical History / Comment(s): Oral Surgery, VTOPx 2 2013,2015 Past Anesthesia/Blood Transfusion Reactions: No Reported Reaction Past Psychological History: Bipolar Smoking Status: Current every day smoker Past Alcohol Use History: None Reported Past Drug Use History: Cocaine, Heroin - Past Family History Father Family Medical History: Coronary Artery Disease (CAD) ( bilateral father is in his early 40s and history of CAD,) Additional Family Medical History / Comment(s): Heart Disease Mother Family Medical History: No Reported History ( mother is 43-year-old has no major medical problems, her maternal grandmother as well as her aunts have cervical cancer.) Sister(s) Family Medical History: No Reported History ( patient has 2 sisters no major medical problems) Son(s) Family Medical History: No Reported History ( she has one son 5 months old lives with her currently with her mother) Medications and Allergies Home Medications Medication Instructions Recorded Confirmed Type Mirtazapine [Remeron] 45 mg PO HS 05/25/17 05/25/17 History Naltrexone Microspheres [Vivitrol] 380 mg IM Q28D 05/25/17 05/25/17 History buPROPion HCL [Wellbutrin SR] 150 mg PO BID 05/25/17 05/25/17 History hydrOXYzine PAMOATE [Vistaril] 100 mg PO TID 05/25/17 05/25/17 History Allergies Allergy/AdvReac Type Severity Reaction Status Date / Time amoxicillin Allergy Rash/Hives Verified 05/25/17 20:19 codeine Allergy Unknown Verified 05/25/17 20:19 Penicillins Allergy Rash/Hives Verified 05/25/17 20:19 Physical Exam Vitals: Vital Signs Temp Pulse Resp BP Pulse Ox 05/25/17 23:49 98.8 F 81 16 110/56 100 05/25/17 23:00 16 05/25/17 22:00 95 16 98 05/25/17 20:06 100.1 F H 118 H 18 137/64 98 Intake and Output 05/25/17 05/25/17 05/26/17 14:59 22:59 06:59 Intake Total 1000 Balance 1000 Intake: Amount of Fluid Infused ( 1000 ml) Other: Weight 72.575 kg Patient Weight 05/26/17 06:59 Weight 72.575 kg Constitutional: No acute distress, conversant, pleasant Eyes: Anicteric sclerae, moist conjunctiva, no lid-lag, PERRLA ENMT: NC/AT,Oropharynx clear, no erythema, exudates Neck:Supple, FROM, no masses, or JVD, No carotid bruits; No thyromegaly Lungs: Clear to auscultation, Clear to percussion, Normal respiratory effort, no accessory muscle use Cardiovascular: Heart regular in rate and rhythm, No murmurs, gallops, or rubs no peripheral edema Abdominal: Soft Nontender, nom distended, no guarding, no rebound or rigidity, Normoactive bowel sounds No hepatomegaly, No splenomegaly, No palpable mass No abdominal wall hernia noted Skin: Normal temperature, tone, texture, turgor, No induration No subcutaneous nodules, No rash, lesions, No ulcers Extremities:No digital cyanosis No clubbing, Pedal pulses intact and symmetrical Radial pulses intact and symmetrical Normal gait and station, No calf tenderness Psychiatric: Alert and oriented to person, place and time, Appropriate affect Intact judgement Neuro: Muscles Strength 5/5 in all 4 extremities, Sensation to light touch grossly present throughout, Cranial nerves II-XII grossly intact. No focal sensory deficits Results CBC & Chem 7: 05/25/17 21:00 05/25/17 21:00 Labs: Abnormal Lab Results - Last 24 Hours (Table) 05/25/17 05/25/17 Range/Units 21:00 21:00 RDW 17.5 H (11.5-15.5) % Urine Protein Trace H (Negative) Ur Leukocyte Esterase Trace H (Negative) Ur Squamous Epith Cells 10 H (0-4) /hpf Urine Bacteria Rare H (None) /hpf Urine Mucus Rare H (None) /hpf Assessment and Plan (1) New onset seizure Current Visit: Yes Status: Acute Code(s): R56.9 - UNSPECIFIED CONVULSIONS SNOMED Code(s): 01755638 (2) Depression Current Visit: No Status: Acute Code(s): F32.9 - MAJOR DEPRESSIVE DISORDER, SINGLE EPISODE, UNSPECIFIED SNOMED Code(s): 44498353 (3) Anxiety Current Visit: Yes Status: Acute Code(s): F41.9 - ANXIETY DISORDER, UNSPECIFIED SNOMED Code(s): 72959870 Plan: The patient is placed in observation with new onset seizure per family reports. Workup so far with CBC CMP and CT of the head is been negative. We'll consult neurology and perhaps get a EEG. We'll place the patient on seizure precautions and start Keppra if needed for seizures. We will await neurology input and recommendations and continue to follow her clinical course
[2017-05-26] MEDS: SODIUM CHLORIDE 0.9% 1,000 ML IV SCH ×3 (01:05→17:48)
[2017-05-26] MEDS: KETOROLAC 30 MG/ML 1 ML VIAL IVP PRN ×2 (08:37→16:20)
[2017-05-26] MEDS ORDERED: PANTOPRAZOLE 40 MG/10 ML VIAL IV SCH (09:00)
--- NOTE | 2017-05-26 15:53 | P.PN ---
Progress Note - Text Progress Note Date: 05/26/17 patient presented after a witnessed attack of seizure like activity for further workup she was on remeron and wellbutrin that can lower seizure threshold, but she has never had any history of seizure. these medications has recently increased in dosing patient currently doing well, and waiting for neurology evaluation patient counseled to avoid driving/operating heavy machinery for 6 months
[2017-05-26] MEDS: ALPRAZolam 0.5 MG TAB PO PRN ×2 (16:20→21:55)
--- NOTE | 2017-05-26 20:10 | EEG ---
ELECTROENCEPHALOGRAM REPORT DATE OF EE05/26/2017. REFERRING PHYSICIAN: Dr. Sterling. CONSULTING PHYSICIAN: Dr. Thalia Rivers ELECTROENCEPHALOGRAPHIC EXAMINATION REPORT: INDICATION FOR EXAMINATION: This patient is a 22-year-old female being evaluated for new onset seizure. AGE: 22. EEG FINDINGS: A routine 21 channel awake digital EEG recording was accomplished utilizing the 10-20 international system with bipolar and referential montages. The background activity in the most alert resting state consists of a low to medium amplitude, fairly well developed and well sustained 7-8 Hz activity over the posterior head regions. This posterior rhythm attenuates to eye opening. There is a small amount of low amplitude 18-20 Hz beta activity seen maximally over the anterior head regions. Muscle and movement artifact was observed on a few occasions during the tracing. Hyperventilation failed to add any additional information to the tracing. No further activation was noted. Photic stimulation at flash frequencies of 2-30 Hz produced a good symmetrical occipital driving response. No epileptiform discharges were seen. IMPRESSION: This EEG is within normal limits for the patient's age. The EEG failed to reveal any focal, lateralized, or epileptiform abnormalities. Clinical correlation is recommended. MMODL / IJN: [id number] /
[2017-05-26] MEDS ORDERED: levETIRAcetam IV 1,000 MG in SODIUM CHLORIDE 0.9% 100 ML IVPB STA (21:28)
--- NOTE | 2017-05-26 21:28 | P.CNNES ---
History of Present Illness Consult date: 05/26/17 History of Present Illness: The patient is a 22-year-old right-handed white female who states that she was in her usual health until yesterday she was out on the porch and was smoking a cigarette when the next thing she knew she was on the floor with people around her. Apparently she had a seizure. This was witnessed by her mother. She had generalized down jerking of the body and foaming at the mouth and postictal confusion. There was no oral trauma or incontinence. The shaking lasted for about 45 seconds. EMS was called and she was brought to [facility]. She denied any current use of illicit drug or alcohol. He has a history of depression and has been taking Wellbutrin for the past 3 months. She is also on Vistaril Remeron and give a trial. She has a history of heroin addiction for the last 3 months she's been on give a trial. She had a CT of the brain in the emergency room which was negative. Patient states she is back to her usual self she denies any headache dizziness weakness or focal numbness. She was advised of the [place] law regarding driving and seizures and told that per [place] law she cannot operate a motorized vehicle until spell free for 6 months. She states she has a suspended license. Review of Systems Constitutional: Denies chills, Denies fever Ears, nose, mouth and throat: Denies headache, Denies sore throat Cardiovascular: Denies chest pain, Denies shortness of breath Respiratory: Denies cough Gastrointestinal: Denies abdominal pain, Denies diarrhea, Denies nausea, Denies vomiting Musculoskeletal: Denies myalgias Neurological: Denies numbness, Denies weakness Psychiatric: Denies anxiety, Denies depression Past Medical History Past Medical History: No Reported History Additional Past Medical History / Comment(s): HERPES VIRUS, Bipolar , IVDA History of Any Multi-Drug Resistant Organisms: None Reported Past Surgical History: Tonsillectomy Additional Past Surgical History / Comment(s): Oral Surgery, VTOPx 2 2013,2015 Past Anesthesia/Blood Transfusion Reactions: No Reported Reaction Past Psychological History: Bipolar Smoking Status: Current every day smoker Past Alcohol Use History: None Reported Past Drug Use History: Cocaine, Heroin - Past Family History Father Family Medical History: Coronary Artery Disease (CAD) ( bilateral father is in his early 40s and history of CAD,) Additional Family Medical History / Comment(s): Heart Disease Mother Family Medical History: No Reported History ( mother is 43-year-old has no major medical problems, her maternal grandmother as well as her aunts have cervical cancer.) Sister(s) Family Medical History: No Reported History ( patient has 2 sisters no major medical problems) Son(s) Family Medical History: No Reported History ( she has one son 5 months old lives with her currently with her mother) Medications and Allergies Home Medications Medication Instructions Recorded Confirmed Type Mirtazapine [Remeron] 45 mg PO HS 05/25/17 05/25/17 History Naltrexone Microspheres [Vivitrol] 380 mg IM Q28D 05/25/17 05/25/17 History buPROPion HCL [Wellbutrin SR] 150 mg PO BID 05/25/17 05/25/17 History hydrOXYzine PAMOATE [Vistaril] 100 mg PO TID 05/25/17 05/25/17 History Allergies Allergy/AdvReac Type Severity Reaction Status Date / Time amoxicillin Allergy Rash/Hives Verified 05/25/17 20:19 codeine Allergy Unknown Verified 05/25/17 20:19 Penicillins Allergy Rash/Hives Verified 05/25/17 20:19 Physical Examination - Vital Signs Vital Signs: Vital Signs Temp Pulse Pulse Resp BP BP Pulse Ox 05/26/17 15:00 98.6 F 89 18 101/56 98 05/26/17 07:00 97.9 F 85 18 106/45 98 05/26/17 00:34 97.7 F 80 16 103/53 97 05/25/17 23:49 98.8 F 81 16 110/56 100 05/25/17 23:00 16 05/25/17 22:00 95 16 98 Intake and Output 05/26/17 05/26/17 05/26/17 06:59 14:59 22:59 Intake Total 2550 960 Balance 2550 960 Intake: IV 960 960 Sodium Chloride 0.9% 1, 960 960 000 ml @ 120 mls/hr IV . Q8H20M KOURTNEY Rx#:[id number] Amount of Fluid Infused ( 1000 ml) Oral 590 Other: Voiding Method Toilet Toilet # Voids 2 Weight 46 kg - Constitutional General appearance: average body habitus - EENT EENT: PERRL - Respiratory Respiratory: lungs clear - Cardiovascular Cardiovascular: regular rate - Neurologic Cranial nerve examination: PERRL, EOMI, VFF, V1/V2/V3 grossly intact, face symmetric, tongue midline Speech examination: intact Sensorimotor examination: intact Detailed motor examination: grossly full strength in all extremities Detailed sensory examination: intact Reflex and gait examination: other (There was no dysmetria) - Psychiatric Psychiatric: mood/affect appropriate Results - Laboratory Findings CBC and BMP: 05/25/17 21:00 05/25/17 21:00 Abnormal Lab Findings: Abnormal Labs 05/25/17 05/25/17 21:00 21:00 RDW 17.5 H Urine Protein Trace H Ur Leukocyte Esterase Trace H Ur Squamous Epith Cells 10 H Urine Bacteria Rare H Urine Mucus Rare H Assessment and Plan (1) New onset seizure Current Visit: Yes Status: Acute SNOMED Code(s): 76913099 (2) Depression Current Visit: No Status: Acute SNOMED Code(s): 78973585 Plan: The patient is a 22-year-old woman who presents to the hospital with new onset seizure. The patient has no prior history of seizures. She is on medications which could have lowered the seizure threshold. Recommend starting patient on Keppra and she will need outpatient further EEG monitoring. She has been counseled about the [place] law regarding driving and seizure. She was advised that she cannot drive until seizure-free for 6 months. The patient was also advised that while she is on Keppra she should stay on folic acid. She states however that that she is not planning . Recommend MRI scan of the brain as an outpatient..
[2017-05-26 23:53] VITALS: RESP 16
[2017-05-27] MEDS: ALPRAZolam 0.5 MG TAB PO PRN (05:34)
[2017-05-27] MEDS ORDERED: PANTOPRAZOLE 40 MG TABLET PO SCH (07:30)
[2017-05-27 07:45] VITALS: BP 120/58; PULSE 83; TEMP 98.1
[2017-05-27] MEDS ORDERED: levETIRAcetam 500 MG TAB PO SCH (09:00)
--- NOTE | 2017-05-27 11:03 | P.DS ---
Providers Date of admission: 05/25/17 22:59 Expected date of discharge: 05/27/17 Attending physician: Chapo Sterling MD Consults: 05/26/17 00:54 Consult Physician Routine Consulting Provider: Thalia Rivers Consult Reason/Comments: ne onset seizures Do you want consulting provider notified?: Yes, Notify in am Primary care physician: Stated None - Discharge Diagnosis(es) (1) New onset seizure Current Visit: Yes Status: Acute (2) Depression Current Visit: No Status: Chronic (3) Polysubstance abuse Current Visit: No Status: Resolved Hospital Course: 22 year old female with PMHx of depression and anxiety. presented after having a witnessed attack of seizure like activity. She was smoking a cigarette on the porch and next thing she remembers is EMS taking her to the hospital. Her family reported finding her on the porch afer hearing a thumb on the door unconscious and jerking movement frothing from the mouth and rolling up her eyes. She denies any tongue biting, loss of urine or bladder control. In the ED , patient had a CT scan of the head which was negative for any acute process . Neurology evaluated the patient and started her on keppra, and recommended OP follow up, and were OK with the patient taking her antidepressant and home medications as long as she is taking keppra. She was advised that her current medications (remeron , wellbutrin, and hydroxyzin) all can lower seizure threshold and she should consider alternatives. SHe was also counseled that Keppra will decrease efficacy of oral control pills and that she will need another method of protection on top of that like considering condoms, diaphragms, or IUD (if she and her partner are monogamus) as keppra is also teratogenic and she should avoid getting while on this medicine. Patient and her mother both verbalized understanding of the the above recommendations. Per [place] state law, she should avoid driving or operating any motorized machinery for at least 6 months Patient seen and examined on day of discharge denies any events overnight denies any further attacks of seizures. She feels safe going home. Constitutional: vital signs stable, Not in acute distress, pleasant, conversant Lungs: Clear to auscultation bilaterally, clear to percussion, normal respiratory effort Cardiovascular: Regular rate and rhythm, no murmurs, no gallops, no rubs, no peripheral edema Gastrointestinal: Soft, no tenderness to palpation, no palpable hepatosplenomegally, bowel sounds positive, no abdominal wall hernias Extremities: No digital cyanosis or ischemia, peripheral pulses palpable and equal over bilateral radial arteries and dorsalis pedis artery, no calf muscle tenderness Psych: Alert, oriented to place, person and time Neuro: Cranial nerves II-XII grossly intact, no focal sensory deficits to touch patient discharged in stable clinical condition [facility] her request follow up with PCP and neurology 35 minutes were spent discharging this patient, and more than 50% of the time was spent in counseling the patient and family and in coordinating care. Pertinent Studies: EEG , unremarkable Patient Condition at Discharge: Good Plan - Discharge Summary New Discharge Prescriptions: New Folic Acid 1 mg PO DAILY@1200 #30 tab levETIRAcetam [Keppra] 500 mg PO Q12HR #60 tab Pantoprazole [Protonix] 40 mg PO AC-BRKFST #30 tablet. Continue Mirtazapine [Remeron] 45 mg PO HS hydrOXYzine PAMOATE [Vistaril] 100 mg PO TID buPROPion HCL [Wellbutrin SR] 150 mg PO BID Naltrexone Microspheres [Vivitrol] 380 mg IM Q28D Discharge Medication List Mirtazapine [Remeron] 45 mg PO HS 05/25/17 [History] Naltrexone Microspheres [Vivitrol] 380 mg IM Q28D 05/25/17 [History] buPROPion HCL [Wellbutrin SR] 150 mg PO BID 05/25/17 [History] hydrOXYzine PAMOATE [Vistaril] 100 mg PO TID 05/25/17 [History] Folic Acid 1 mg PO DAILY@1200 #30 tab 05/27/17 [Rx] Pantoprazole [Protonix] 40 mg PO AC-BRKFST #30 tablet. 05/27/17 [Rx] levETIRAcetam [Keppra] 500 mg PO Q12HR #60 tab 05/27/17 [Rx] Follow up Appointment(s)/Referral(s): None,Stated [Primary Care Provider] - 1-2 days Christiana Rivers MD [STAFF PHYSICIAN] - 1 Week Christal Logan MD [STAFF PHYSICIAN] - 3 Days (new patient ) Patient Instructions/Handouts: New-Onset Seizure in Adults (GEN) Activity/Diet/Wound Care/Special Instructions: activity as tolerated diet as tolerated avoid driving per [place] state law for at least 6 months, avoid operating any motorized machinery. Patient understands that the medications she is taking can lower her seizure threshold, she chose to continue taking these medications along with keppra , she is to follow up closely with neurology Discharge Disposition: HOME SELF-CARE
[2017-05-27] MEDS ORDERED: FOLIC ACID 1 MG TAB PO SCH (12:00)
== END 2017-05-27 11:05 | disposition home or self-care (01) ==
LOC: EC 19:54 → 5MS5E 22:59
PROVIDERS: ADMIT Family Medicine; ATTEND Family Medicine
DX: R56.9 Unspecified convulsions (principal); F41.9 Anxiety disorder, unspecified; F31.9 Bipolar disorder, unspecified; G47.00 Insomnia, unspecified; F11.11 Opioid abuse, in remission; F17.210 Nicotine dependence, cigarettes, uncomplicated; Z79.899 Other long term (current) drug therapy; Z88.5 Allergy status to narcotic agent; Z88.0 Allergy status to penicillin; Z88.1 Allergy status to other antibiotic agents; Z82.49 Family history of ischemic heart disease and other diseases of the circulatory system; W19.XXXA Unspecified fall, initial encounter
CPT/HCPCS: 99285; 96361 ×3; 96376; 96365; 96375; 36415; 95816; 93005; 80053; 85025; 81001; 81025; 80306; 70450; G0378 ×3; J1885; J1953; C9113

== ENCOUNTER 2018-06-29 22:07 | Emergency (ER) | payer OTHER ==
[2018-06-29 22:20] VITALS: BP 126/71; PULSE 103; RESP 18; TEMP 98.6
--- NOTE | 2018-06-29 22:23 | ED ---
General Adult HPI - General Chief complaint: Drug Screen Stated complaint: Drug testing Time Seen by Provider: 06/29/18 22:17 Source: patient Mode of arrival: ambulatory Limitations: no limitations - History of Present Illness Initial comments: 23-year-old female patient comes in requesting drug screen. Patient is currently residing at a residential and they do mandatory drug testing. She states that her home drug test came up positive for marijuana. She states that she has not smoked marijuana so they sent her here for hospital drug testing. States that she feels well physically. She has no physical complaints. States she is otherwise healthy. Patient denies any recent rash, fever, chills, shortness breath, chest pain, abdominal pain, nausea, vomiting, diarrhea, constipation, back pain, numbness, tingling, dizziness, weakness, hematuria, dysuria, urinary urgency, urinary frequency, headache, visual changes, or any other complaints. - Related Data Home Medications Medication Instructions Recorded Confirmed Mirtazapine [Remeron] 45 mg PO HS 05/25/17 05/25/17 Naltrexone Microspheres [Vivitrol] 380 mg IM Q28D 05/25/17 05/25/17 buPROPion HCL [Wellbutrin SR] 150 mg PO BID 05/25/17 05/25/17 hydrOXYzine PAMOATE [Vistaril] 100 mg PO TID 05/25/17 05/25/17 Previous Rx's Medication Instructions Recorded Folic Acid 1 mg PO DAILY@1200 #30 tab 05/27/17 Pantoprazole [Protonix] 40 mg PO AC-BRKFST #30 tablet. 05/27/17 levETIRAcetam [Keppra] 500 mg PO Q12HR #60 tab 05/27/17 Allergies Allergy/AdvReac Type Severity Reaction Status Date / Time amoxicillin Allergy Rash/Hives Verified 06/29/18 22:17 codeine Allergy Unknown Verified 06/29/18 22:17 Penicillins Allergy Rash/Hives Verified 06/29/18 22:17 Review of Systems ROS Statement: Those systems with pertinent positive or pertinent negative responses have been documented in the HPI. ROS Other: All systems not noted in ROS Statement are negative. Past Medical History Past Medical History: No Reported History Additional Past Medical History / Comment(s): HERPES VIRUS, Bipolar , IVDA History of Any Multi-Drug Resistant Organisms: None Reported Past Surgical History: Tonsillectomy Additional Past Surgical History / Comment(s): Oral Surgery, VTOPx 2 2013,2016 Past Anesthesia/Blood Transfusion Reactions: No Reported Reaction Past Psychological History: Anxiety, Bipolar, Depression Smoking Status: Current every day smoker Past Alcohol Use History: None Reported Past Drug Use History: None Reported - Past Family History Father Family Medical History: Coronary Artery Disease (CAD) ( bilateral father is in his early 40s and history of CAD,) Additional Family Medical History / Comment(s): Heart Disease Mother Family Medical History: No Reported History ( mother is 43-year-old has no major medical problems, her maternal grandmother as well as her aunts have cervical cancer.) Sister(s) Family Medical History: No Reported History ( patient has 2 sisters no major medical problems) Son(s) Family Medical History: No Reported History ( she has one son 5 months old lives with her currently with her mother) General Exam Limitations: no limitations General appearance: alert, in no apparent distress, other (This is a well- developed, well-nourished adult female patient in no acute distress. Vital signs upon presentation are temperature 98.6F, pulse 103, respirations 18, blood pressure 126/71, pulse ox 95% on room air.) Eye exam: Present: normal appearance, PERRL, EOMI. Absent: scleral icterus, conjunctival injection, periorbital swelling Respiratory exam: Present: normal lung sounds bilaterally. Absent: respiratory distress, wheezes, rales, rhonchi, stridor Cardiovascular Exam: Present: regular rate, normal rhythm, normal heart sounds. Absent: systolic murmur, diastolic murmur, rubs, gallop, clicks Neurological exam: Present: alert, oriented X3, CN II-XII intact Psychiatric exam: Present: normal affect, normal mood Skin exam: Present: warm, dry, intact, normal color. Absent: rash Course Vital Signs 06/29/18 22:17 Temperature 98.6 F Pulse Rate 103 H Respiratory 18 Rate Blood Pressure 126/71 O2 Sat by Pulse 95 Oximetry Medical Decision Making - Medical Decision Making 23-year-old female patient presented to the emergency department today requesting drug screening. Patient no physical complaints or concerns. Drug screen was performed, positive for opiates. She is discharged home at this time to follow-up with her primary care physician as needed. - Lab Data Lab Results 06/29/18 Range/Units 22:15 Urine Opiates Screen Detected H (NotDetected) Ur Oxycodone Screen Not Detected (NotDetected) Urine Methadone Screen Not Detected (NotDetected) Ur Propoxyphene Screen Not Detected (NotDetected) Ur Barbiturates Screen Not Detected (NotDetected) U Tricyclic Antidepress Not Detected (NotDetected) Ur Phencyclidine Scrn Not Detected (NotDetected) Ur Amphetamines Screen Not Detected (NotDetected) U Methamphetamines Scrn Not Detected (NotDetected) U Benzodiazepines Scrn Not Detected (NotDetected) Urine Cocaine Screen Not Detected (NotDetected) U Marijuana (THC) Screen Not Detected (NotDetected) Disposition Clinical Impression: Encounter for drug screening Disposition: HOME SELF-CARE Condition: Good Additional Instructions: Your drug testing results have been supplied. Follow up with primary care physician as needed. Return immediately for any new, worsening, or concerning symptoms. Is patient prescribed a controlled substance at d/c from ED?: No Referrals: None,Stated [Primary Care Provider] - 1-2 days Time of Disposition: 22:50
[2018-06-29 22:40] LABS: Amphetamine Screen,Urine Not Detected (NotDetected); Barbiturate Screen,Urine Not Detected (NotDetected); Benzodiazepines Screen,Urine Not Detected (NotDetected); Cocaine Screen,Urine Not Detected (NotDetected); Methadone Screen, Urine Not Detected (NotDetected); Opiate Screen,Urine Detected (NotDetected); Oxycodone Screen, Urine Not Detected (NotDetected); Phencyclidine Screen,Urine Not Detected (NotDetected); Tricyclic Antidepressant,Urine Not Detected (NotDetected); Urn Cannabinoid Scrn Not Detected (NotDetected)
== END 2018-06-29 23:03 | disposition home or self-care (01) ==
LOC: EC 22:07
DX: Z02.89 Encounter for other administrative examinations (principal); F31.9 Bipolar disorder, unspecified; F41.9 Anxiety disorder, unspecified; F17.200 Nicotine dependence, unspecified, uncomplicated; Z88.0 Allergy status to penicillin; Z88.5 Allergy status to narcotic agent; Z79.899 Other long term (current) drug therapy
CPT/HCPCS: 80306; 99282

== ENCOUNTER → 2021-10-05 | Outpatient (CLI) | payer OTHER ==
[2021-10-05 22:45] LABS: Chol/HDL Ratio 2.94 Ratio; LDL Cholesterol,Calculated 80.3 mg/dL (0.0-131.0); VLDL Calculation 18.72 mg/dL (5.00-40.00)
[2021-10-05 22:46] LABS: African American GFR (CKD) 141.5 (60.0-200.0); Blood Urea Nitrogen 12.6 mg/dL (9.0-27.0); Glucose 88 mg/dL (70-110); Non-African American GFR(CKD) 122.1 (60.0-200.0)
== END | disposition home or self-care (01) ==
LOC: LABWHC1 14:23
PROVIDERS: ATTEND Psychiatry & Neurology Psychiatry
DX: F11.20 Opioid dependence, uncomplicated (principal); Z79.899 Other long term (current) drug therapy
CPT/HCPCS: 36415; 80061; 80178; 82565; 82947; 83036; 84439; 84443; 84520

== ENCOUNTER 2023-02-17 00:39 | Outpatient (CLI) | payer SELFPAY ==
[2023-02-17 01:34] VITALS: BP 125/75; PULSE 98; RESP 16; TEMP 97.5
--- NOTE | 2023-02-22 17:17 | P.MSEPDOC ---
Presenting Problems - Arrival Data Date of Arrival on Unit: 02/17/23 Time of Arrival on Unit: 00:25 Mode of Transport: Ambulatory - Complaint OB-Reason for Admission/Chief Complaint: Vaginal Bleeding Comment: pt states that she had bleeding/spotting with some clots and cramping in the toliet when she went to the bathroom after intercourse Medical History - Information : 3 Para: 1 Term: 1 : 0 Abortions: Spontaneous or Elective: 1 Number of Living Children: 1 - Gestational Age Gestational Age by ROBERT (wks/days): 23 Weeks and 1 Days Review of Systems - Review of Systems Constitutional: No problems Breast: No problems ENT: No problems Cardiovascular: No problems Respiratory: No problems Gastrointestinal: No problems Genitourinary: No problems Musculoskeletal: No problems Neurological: No problems Skin: No problems Vital Signs - Temperature Temperature: 97.5 F Temperature Source: Oral - Pulse Apical Pulse Rate: 98 Pulse Assessment Method: Pulse Oximetry - Respirations Respiratory Rate: 16 Oxygen Delivery Method: Room Air O2 Sat by Pulse Oximetry: 98 - Blood Pressure Right Arm Blood Pressure: 125/75 Blood Pressure Mean: 91 Blood Pressure Source: Automatic Cuff Physician Notification - Physician Notified Physician Notified Date: 02/17/23 Physician Notified Time: 01:03 Physician: Joel Brar Order Received: Yes (d/c pt home) - Notification Comment Comment: no active bleeding noted on visual exam or on peripad, pt states that she had intercourse. 23 1/7 gestation with twins. no other complications with . pt instructed to call office in morning if bleeding continues, if it resolves then keep diana appt on 03/02. Maternal Triage Index - Maternal Triage Index Presenting for scheduled procedure w/no complaint: No - Stat/Priority 1 Stat Priority 1: No - Urgent/Priority 2 Urgent Priority 2: No - Prompt/Priority 3 Prompt Priority 3: Yes Criteria Met for Priority 3: twin complaining of bleeding/spotting and cramping after intercourse. Disposition - Disposition OB Disposition: Discharge to home Discharge Date: 02/17/23 Discharge Time: 01:12 I agree with the RN Medical Screening Exam: Yes Physician's MSE Comment: I have neither seen nor examined the patient. Case reviewed; plan agreed upon as documented in EMR&OBIX.: Yes Diagnosis: RELATED CONDITIONS, UNSPECIFIED, SECOND TRIMESTER
== END 2023-02-17 01:12 | disposition home or self-care (01) ==
LOC: FBPOP 00:39
PROVIDERS: ATTEND Obstetrics & Gynecology
DX: O26.892 Other specified pregnancy related conditions, second trimester (principal); O46.92 Antepartum hemorrhage, unspecified, second trimester; O99.332 Smoking (tobacco) complicating pregnancy, second trimester; F17.200 Nicotine dependence, unspecified, uncomplicated; Z88.0 Allergy status to penicillin; Z88.5 Allergy status to narcotic agent; Z3A.23 23 weeks gestation of pregnancy
CPT/HCPCS: 99213

== ENCOUNTER 2023-03-15 07:27 | Observation (INO) | payer OTHER ==
[2023-03-15] MEDS ORDERED: HYDROmorphone 0.5 MG/0.5 ML SYRINGE IVP STA ×2 (08:00→08:16)
[2023-03-15 08:01] LABS: Basophils % (A) 0 %; Eosinophils # (A) 0.3 k/uL (0-0.7); Eosinophils % (A) 4 %; HCT 35.6 % (34.0-46.0); HGB 12.2 gm/dL (11.4-16.0); Lymphocytes # (A) 2.5 k/uL (1.0-4.8); Lymphocytes % (A) 26 %; MCH 29.6 pg (25.0-35.0); MCHC 34.4 g/dL (31.0-37.0); Monocytes # (A) 0.4 k/uL (0-1.0); Monocytes % (A) 5 %; Neutrophils % (A) 63 %; Platelet Count 292 k/uL (150-450); RBC 4.14 m/uL (3.80-5.40); RDW 13.1 % (11.5-15.5); WBC 9.4 k/uL (3.8-10.6)
[2023-03-15] MEDS: LACTATED RINGERS 1,000 ML IV SCH ×6 (08:16→18:44)
--- NOTE | 2023-03-15 09:08 | US ---
EXAMINATION TYPE: US renals and bladder DATE OF EXAM: 03/15/2023 COMPARISON: NONE CLINICAL INDICATION: Female, 27 years old with history of rule out kidney stone right / acute pain; Right flank pain, patient is 26 weeks EXAM MEASUREMENTS: Right Kidney: 13.0 x 5.5 x 6.9 cm Left Kidney: 10.5 x 5.2 x 5.5 cm Right Kidney: hydronephrosis, inferior pole limited by overlying bowel gas Left Kidney: wnl, inferior pole limited by overlying bowel gas Bladder: wnl Bilateral Jets seen: no IMPRESSION: Moderate hydronephrosis on the right.
[2023-03-15] MEDS ORDERED: Acetaminophen-Codeine 300-30mg TAB PO PRN (11:15)
[2023-03-15] MEDS ORDERED: HYDROcodone/APAP 5-325MG 1 EACH TAB PO PRN (11:19)
[2023-03-15 12:01] LABS: Appearance,Urine Cloudy (Clear); Bacteria,Urine Rare /hpf; Bilirubin,Urine Negative (Negative); Blood,Urine Negative (Negative); Color,Urine Light Yellow; Glucose,Urine (UA) Negative (Negative); Ketones,Urine Negative (Negative); Leukocyte Esterase,Urine Negative (Negative); Mucus,Urine Rare /hpf; Nitrite,Urine Negative (Negative); Protein,Urine Negative (Negative); RBC,Urine 2 /hpf (0-5); Specific Gravity,Urine 1.013 (1.001-1.035); Squamous Epithelial Cell,Urine 4 /hpf (0-4); Urobilinogen,Urine <2.0 mg/dL (<2.0); WBC,Urine 2 /hpf (0-5)
[2023-03-15] MEDS ORDERED: NALOXONE 0.4 MG/ML 1 ML VIAL IV PRN (12:51)
[2023-03-15] MEDS ORDERED: HYDROmorphone PCA 10 MG/50 ML BAG IV PRN (12:51)
[2023-03-16] MEDS: LACTATED RINGERS 1,000 ML IV SCH ×2 (07:38→09:20)
--- NOTE | 2023-03-16 08:46 | P.HPOB ---
History of Present Illness H&P Date: 03/16/23 Chief Complaint: 26+ weeks, twins, presumptive nephrolithiasis The patient is a 27-year-old 4 para 10-1 admitted at 26+ weeks as established by last menstrual period and 18 week ultrasound. She is admitted with a known twin gestation and acute onset of right-sided pain. She presented to triage with a complaint of right flank pain radiating into the right groin. Ultrasound was negative for visualization of a stone and showed only right hydronephrosis which is normal for . Nonetheless her pain remains fairly significant and waxes and wanes. It is primarily located in the right lower quadrant in the area where the ureterovesical junction would be a nticipated. As her pain could not be controlled with oral pain medications she is admitted for aggressive IV hydration and IV pain control. well-being has been documented for both twins. Obstetrical history: 4 para 10-1 with 1 term vaginal delivery and current statistics listed in history present illness. EDC 06/15/2023 was established by last menstrual period and confirmed by 18 week ultrasound. Laboratory workup demonstrates a blood type of O+ with a negative antibody screen. Rubella status is immune. The remainder of the laboratory workup was within normal limits aside from a positive urine culture for group B strep which was treated and cured. One hour Glucola is pending at this time and group B strep status has not been done. Gynecologic history: Unremarkable with no history of any infections to include STDs. She does have remote history of HSV but has had no lesions during this and will be prophylaxed as we approach delivery. Review of Systems Review of systems is confined to history of present illness. Past Medical History Past Medical History: No Reported History Additional Past Medical History / Comment(s): HERPES VIRUS, Bipolar History of Any Multi-Drug Resistant Organisms: None Reported Past Surgical History: Tonsillectomy Additional Past Surgical History / Comment(s): Oral Surgery, VTOPx1 2016 Past Anesthesia/Blood Transfusion Reactions: No Reported Reaction Past Psychological History: Anxiety, Bipolar, Depression Smoking Status: Vaper Past Alcohol Use History: None Reported Past Drug Use History: None Reported, Marijuana Additional Drug Use History / Comment(s): thc use at bedtime - Past Family History Father Family Medical History: Coronary Artery Disease (CAD) Additional Family Medical History / Comment(s): Heart Disease Mother Family Medical History: No Reported History Sister(s) Family Medical History: No Reported History Son(s) Family Medical History: No Reported History Medications and Allergies Home Medications Medication Instructions Recorded Confirmed Type Vit No.179/Iron/Folic 1 each PO DAILY 02/17/23 03/15/23 History [ Tablet] QUEtiapine [SEROquel] 50 mg PO HS 03/15/23 03/15/23 History Sulfamethox-Tmp 800-160Mg [Bactrim 1 tab PO Q12HR 03/15/23 03/15/23 History DS 800-160 mg] Allergies Allergy/AdvReac Type Severity Reaction Status Date / Time amoxicillin Allergy Rash/Hives Verified 03/15/23 08:34 codeine Allergy Rash/Hives Verified 03/15/23 08:34 Penicillins Allergy Rash/Hives Verified 03/15/23 08:34 Exam Vital Signs Temp Pulse Resp BP Pulse Ox 03/15/23 20:00 96.7 F L 73 16 115/62 99 03/15/23 12:51 98 03/15/23 12:49 97.3 F L 75 16 107/53 98 Intake and Output 03/15/23 03/16/23 03/16/23 22:59 06:59 14:59 Other: # Voids 2 3 In general, this is a well-developed, well-nourished white female in no acute distress though she has apparent discomfort in the right lower quadrant which waxes and wanes in nature. Her heart has a regular rhythm and rate without murmur. Her lungs clear to auscultation bilaterally in all palma. Her abdomen is gravid, nondistended, has normal active bowel sounds, soft, and with no significant tenderness except in the right lower quadrant. Her extremities are without any cyanosis, clubbing, or edema and are nontender to palpation bilaterally. Digital cervical examination in triage demonstrated her cervix to be closed, thick, and high. Results Result Diagrams: 03/15/23 07:53 Abnormal Lab Results - Last 24 Hours (Table) 03/15/23 Range/Units 11:38 Urine Appearance Cloudy H (Clear) Urine Bacteria Rare H (None) /hpf Urine Mucus Rare H (None) /hpf Assessment and Plan (1) 26 weeks gestation of Current Visit: Yes Status: Acute Code(s): Z3A.26 - 26 WEEKS GESTATION OF SNOMED Code(s): 36749742 (2) Twin gestation in second trimester Current Visit: Yes Status: Acute Code(s): O30.002 - TWIN PREG, UNSP NUM PLCNTA & AMNIO SACS, SECOND TRIMESTER SNOMED Code(s): 78505458 (3) Nephrolithiasis Current Visit: Yes Status: Acute Code(s): N20.0 - CALCULUS OF KIDNEY SNOMED Code(s): 11557294 Plan: The patient has been admitted for aggressive IV hydration and IV pain control as oral pain medications failed in triage. She will continue to have IV fluids run at 150 mL an hour. She is tolerating liquids and was pushing those as well. She otherwise is tolerating regular diet as well. A Dilaudid TABLE LEVER OPERATOR has been started for pain control. I will add Flomax attempt to help to pass the stone. As soon as she passes a stone, she will be discharged to follow-up as an outpatient. She otherwise will continue to have a heart tone strip done oh each shift to ensure well-being.
[2023-03-16] MEDS: TAMSULOSIN 0.4 MG CAP.ER.24H PO SCH (10:05)
[2023-03-16] MEDS ORDERED: bisacodyL 10 MG SUPP RECTAL STA (22:28)
[2023-03-16] MEDS: SENNOSIDES-DOCUSATE SODIUM 1 EACH TAB PO SCH (22:40)
[2023-03-17] MEDS: LACTATED RINGERS 1,000 ML IV SCH ×4 (01:25→12:22)
[2023-03-17] MEDS: SENNOSIDES-DOCUSATE SODIUM 1 EACH TAB PO SCH (08:35)
[2023-03-17] MEDS: TAMSULOSIN 0.4 MG CAP.ER.24H PO SCH (08:35)
--- NOTE | 2023-03-17 08:40 | P.PN ---
Subjective Progress Note Date: 03/17/23 Principal diagnosis: 26+ weeks, twin IUP, presumptive nephrolithiasis The patient continues to complain of moderate to significant right lower quadrant pain which waxes and wanes in nature. She is otherwise tolerating liquids and solids by mouth. Babies remain active. Objective - Vital Signs Vital signs: Vital Signs Temp 98.6 F 03/16/23 16:00 Pulse 84 03/16/23 16:00 Resp 20 03/16/23 16:00 BP 125/65 03/16/23 16:00 Pulse Ox 100 03/16/23 16:00 FiO2 Intake & Output 03/16/23 03/17/23 03/17/23 18:59 06:59 18:59 Intake Total 720 Output Total 1200 Balance -480 Intake: Oral 720 Output: Urine 1200 Other: # Voids 3 2 - Exam In general, this is a well-developed, well-nourished white female in no apparent distress at this time as she is sleeping soundly. Her abdomen is soft, with minimal focal tenderness, some right lower quadrant tenderness present. The fundus is nontender. Her extremities are without any cyanosis, clubbing, or edema and are nontender to palpation bilaterally. - Labs CBC & Chem 7: 03/15/23 07:53 Assessment and Plan (1) 26 weeks gestation of Current Visit: Yes Status: Acute Code(s): Z3A.26 - 26 WEEKS GESTATION OF SNOMED Code(s): 43549468 (2) Twin gestation in second trimester Current Visit: Yes Status: Acute Code(s): O30.002 - TWIN PREG, UNSP NUM PLCNTA & AMNIO SACS, SECOND TRIMESTER SNOMED Code(s): 77290652 (3) Nephrolithiasis Current Visit: Yes Status: Acute Code(s): N20.0 - CALCULUS OF KIDNEY SNOMED Code(s): 33991092 Plan: We will discontinue the SET UP / OPERATOR and have a trial of oral pain medications with [place]alou. Assuming that we are able to adequately control her pain, she will be discharged later today to attempt management as an outpatient.
[2023-03-17] MEDS ORDERED: HYDROcodone/APAP 5-325MG 1 EACH TAB PO PRN ×2 (08:41)
[2023-03-17 08:48] VITALS: BP 102/56; PULSE 72; RESP 16; TEMP 97.8
[2023-03-17] MEDS ORDERED: MAGNESIUM SULFATE-WATER PMX 4 GM in WATER FOR INJECTION 1 100ML.BAG IVPB ONE (12:03)
[2023-03-17] MEDS ORDERED: MAGNESIUM SULFATE-WATER PMX 20 GM in WATER FOR INJECTION 1 500ML.BAG IV SCH (12:15)
[2023-03-17] MEDS ORDERED: BETAMET ACET-BETAMETH SOD PHOS 6 MG/ML MDV IM SCH (12:15)
--- NOTE | 2023-03-17 12:41 | P.DS ---
Providers Date of admission: 03/15/23 12:46 Expected date of discharge: 03/17/23 Attending physician: Joel Brar Primary care physician: Stated None - Discharge Diagnosis(es) (1) 26 weeks gestation of Current Visit: Yes Status: Acute (2) Twin gestation in second trimester Current Visit: Yes Status: Acute (3) Nephrolithiasis Current Visit: Yes Status: Acute (4) labor in second trimester Current Visit: Yes Status: Acute Hospital Course: The patient is a 27-year-old 4 para 1021 admitted initially at 26-6/7 weeks with presumptive nephrolithiasis. She has a known dichorionic/diamniotic twin intrauterine with good dating parameters. She initially presented with significant right flank pain radiating into the right groin at which time it eventually settled into the right groin exclusively. Her pain was unable to be controlled with oral pain medications initially and she was therefore admitted for IV pain control. She has had a SUPERVISOR MAJOR APPLIANCE ASSEMBLY for the last 24-36 hours which controlled her pain well. well-being has been documented throughout her hospital stay and there was initially no evidence of uterine contractions. At the time of admission her cervix was noted to be closed, thick, and high. This morning, she was awakened from sleep with significant discomfort which she felt was different in nature from her previous pain. The nurse promptly put her on the monitor and was noted to have contractions roughly every 1-3 minutes. Digital cervical examination performed by the nursing staff demonstrates her cervix now to be 1 cm dilated and still thick and high. The diagnosis of labor is therefore made at an early gestation. As a result, transfer has been arranged to [facility] for concerns for potential prematurity. The patient has been started on magnesium sulfate with a 4 g IV bolus to be followed by 2 g/m. A Simeon catheter was placed for fluid management. Total fluids will be restricted to 125 mL's per hour. The initial dose of betamethasone has been given intramuscularly to be repeated in 24 hours at [facility]. I have discussed this case with Dr. Dawson who is the staff provider at [facility] who has accepted the transfer. I have also discussed the case extensively with both the patient and her significant other and the understanding the need for transfer. Procedures: #1. IV hydration #2. IV pain control #3. Magnesium tocolyse this #4. Betamethasone steroid administration #5. Transfer of care to another facility Patient Condition at Discharge: Stable Plan - Discharge Summary New Discharge Prescriptions: No Action Vit No.179/Iron/Folic [ Tablet] 1 each PO DAILY QUEtiapine [SEROquel] 50 mg PO HS Sulfamethox-Tmp 800-160Mg [Bactrim DS 800-160 mg] 1 tab PO Q12HR Discharge Medication List Vit No.179/Iron/Folic [ Tablet] 1 each PO DAILY 02/17/23 [History] QUEtiapine [SEROquel] 50 mg PO HS 03/15/23 [History] Sulfamethox-Tmp 800-160Mg [Bactrim DS 800-160 mg] 1 tab PO Q12HR 03/15/23 [History] Discharge Disposition: OTHER INSTITUTION NOT DEFINED
== END 2023-03-17 14:03 | disposition other institution (70) ==
LOC: FBPOP 07:27 → INTOOBSV 12:45 → OBSVTOIN 12:45 → 4FBP 12:45 → INTOOBSV 12:46 → OBSVTOIN 12:46 → UNDODISIN 03-17 14:03
PROVIDERS: ADMIT Obstetrics & Gynecology; ATTEND Obstetrics & Gynecology
DX: O60.02 Preterm labor without delivery, second trimester (principal); O26.832 Pregnancy related renal disease, second trimester; N13.2 Hydronephrosis with renal and ureteral calculous obstruction; O30.002 Twin pregnancy, unspecified number of placenta and unspecified number of amniotic sacs, second trimester; O99.342 Other mental disorders complicating pregnancy, second trimester; F41.9 Anxiety disorder, unspecified; F31.9 Bipolar disorder, unspecified; O99.332 Smoking (tobacco) complicating pregnancy, second trimester; F17.290 Nicotine dependence, other tobacco product, uncomplicated; Z3A.26 26 weeks gestation of pregnancy; Z88.0 Allergy status to penicillin; Z88.5 Allergy status to narcotic agent
CPT/HCPCS: 96376; 96361 ×2; 96372; 96374; 36415; 85025; 81001; 76770; G0378 ×4; G0463; J3475 ×2; J1170 ×3; J0702; 99214

== ENCOUNTER → 2023-05-16 | Outpatient (CLI) | payer OTHER | LOC: FBPOP 09:51 | PROVIDERS: ATTEND Obstetrics & Gynecology | DX: O30.003 Twin pregnancy, unspecified number of placenta and unspecified number of amniotic sacs, third trimester (principal); O99.333 Smoking (tobacco) complicating pregnancy, third trimester; F17.200 Nicotine dependence, unspecified, uncomplicated; Z3A.28 28 weeks gestation of pregnancy; Z88.0 Allergy status to penicillin; Z88.5 Allergy status to narcotic agent | CPT/HCPCS: 59025; G0463; 99213 ==

== ENCOUNTER 2023-05-25 16:09 | Inpatient (IN) | payer OTHER ==
[2023-05-25] MEDS ORDERED: TRANEXAMIC 1,000 MG/100ML-NACL 1,000 MG in EMPTY BAG 1 BAG IV PRN (16:36)
[2023-05-25] MEDS ORDERED: METHYLERGONOVINE 0.2 MG/ML 1 ML AMP IM PRN (16:36)
[2023-05-25] MEDS ORDERED: OXYTOCIN 10 UNIT/ML 1 ML VIAL IM PRN (16:36)
[2023-05-25] MEDS ORDERED: CITRIC ACID-SODIUM CITRATE 15 ML CUP PO ONE (16:36)
[2023-05-25] MEDS ORDERED: CLINDAMYCIN 900 MG in DEXTROSE 5% IN WATER 50 ML IVPB ONE ×2 (16:36)
[2023-05-25] MEDS ORDERED: CARBOPROST TROMETHAMINE 250 MCG/ML 1 ML AMP IM PRN (16:36)
[2023-05-25] MEDS ORDERED: miSOPROStoL 200 MCG TAB PO PRN (16:36)
[2023-05-25] MEDS ORDERED: OXYTOCIN 30 UNITS/500 ML NS BAG IV ONE (16:55)
[2023-05-25] MEDS ORDERED: DEXAMETHASONE SOD PHOSPHATE 4 MG/ML 1 ML VIAL ONE (16:55)
[2023-05-25] MEDS ORDERED: MORPHINE SULFATE (PF) 0.3 MG/0.3 ML SYR ONE (16:55)
[2023-05-25] MEDS ORDERED: ONDANSETRON 4 MG/2 ML VIAL ONE (16:55)
[2023-05-25] MEDS ORDERED: KETOROLAC 15 MG/ML 1 ML VIAL ONE (16:55)
[2023-05-25 17:18] LABS: Basophils # (A) 0.1 k/uL (0-0.2); Basophils % (A) 1 %; Eosinophils # (A) 0.2 k/uL (0-0.7); Eosinophils % (A) 1 %; HCT 38.1 % (34.0-46.0); HGB 12.8 gm/dL (11.4-16.0); Lymphocytes # (A) 1.9 k/uL (1.0-4.8); Lymphocytes % (A) 14 %; MCH 27.2 pg (25.0-35.0); MCHC 33.6 g/dL (31.0-37.0); Mean Platelet Volume 9.5; Monocytes # (A) 0.6 k/uL (0-1.0); Monocytes % (A) 4 %; Neutrophils # (A) 10.7 k/uL (1.3-7.7); Neutrophils % (A) 79 %; Platelet Count 283 k/uL (150-450); RBC 4.71 m/uL (3.80-5.40); RDW 14.3 % (11.5-15.5); WBC 13.5 k/uL (3.8-10.6)
[2023-05-25] MEDS ORDERED: diphenhydrAMINE 50 MG/ML 1 ML VIAL IVP PRN ×3 (17:48→17:50)
[2023-05-25] MEDS ORDERED: diphenhydrAMINE 25 MG CAP PO PRN (17:48)
[2023-05-25] MEDS ORDERED: ZOLPIDEM 5 MG TAB PO PRN (17:48)
[2023-05-25] MEDS ORDERED: METOCLOPRAMIDE 5 MG/ML 2 ML VIAL IVP PRN (17:48)
[2023-05-25] MEDS ORDERED: diphenhydrAMINE 50 MG CAP PO PRN (17:48)
[2023-05-25] MEDS ORDERED: NALOXONE 0.4 MG/ML 1 ML VIAL IV PRN (17:50)
[2023-05-25] MEDS ORDERED: ONDANSETRON 4 MG/2 ML VIAL IVP PRN (17:50)
[2023-05-25] MEDS ORDERED: OXYTOCIN 30 UNITS/500 ML NS 30 UNIT in SALINE 1 500ML.BAG IV SCH (18:00)
--- NOTE | 2023-05-25 18:03 | P.HPOB ---
History of Present Illness H&P Date: 05/25/23 Chief Complaint: 37-0/7 weeks twin intrauterine , active labor, cristiano ech/transverse The patient is a 28-year-old 4 para 10-1 who presents to triage at 37- 0/7 weeks as established by last menstrual period and confirmed by 18 week ultrasound. She presents with a known twin intrauterine in active labor with her cervix dilated 5 cm. Previous documentation of presentation has been breech/transverse or transverse/transverse as an outpatient. The twins are diamniotic/dichorionic. She does carry a diagnosis of intrauterine growth restriction for both twins with growth at less than 10th percentile for both since approximate 32 weeks. She has had twice weekly testing which has been reassuring throughout the entire . She additionally has requested intraoperative bilateral tubal occlusion with Filshie clips. On labor and delivery, both twins are showing a category 1 heart rate tracing. The patient is in active labor. She is known to also be group B strep positive based upon her urine culture at initial visit having group B strep bacteriuria. Obstetrical history: 4 para 10-1 with 1 term vaginal delivery in 2 early miscarriages. Current statistics are listed in history of present illness. EDC of 06/15/2023 was established by last menstrual period and confirmed by 18 week ultrasound. Laboratory workup done Schutze blood type of O+ with a negative antibody screen. Rubella status is immune. The remainder of the laboratory workup was within normal limits aside from group B strep positivity and her urine culture. One hour Glucola was normal and group B strep status is positive. Gynecologic history: Unremarkable with no recent history of infections to include STDs though she does carry a history of HSV for which she has had no outbreaks during the . There is no evidence of herpetic lesions at the time of presentation. Review of Systems Review of systems is confined to history of present illness. Past Medical History Past Medical History: No Reported History Additional Past Medical History / Comment(s): HERPES VIRUS, Bipolar History of Any Multi-Drug Resistant Organisms: None Reported Past Surgical History: Tonsillectomy Additional Past Surgical History / Comment(s): Oral Surgery, VTOPx1 2016 Past Anesthesia/Blood Transfusion Reactions: No Reported Reaction Smoking Status: Never smoker - Past Family History Father Family Medical History: Coronary Artery Disease (CAD) Additional Family Medical History / Comment(s): Heart Disease Mother Family Medical History: No Reported History Sister(s) Family Medical History: No Reported History Son(s) Family Medical History: No Reported History Medications and Allergies Home Medications Medication Instructions Recorded Confirmed Type Vit No.179/Iron/Folic 1 each PO DAILY 02/17/23 05/25/23 History [ Tablet] QUEtiapine [SEROquel] 50 mg PO HS 03/15/23 05/25/23 History Allergies Allergy/AdvReac Type Severity Reaction Status Date / Time amoxicillin Allergy Rash/Hives Verified 05/25/23 16:18 codeine Allergy Rash/Hives Verified 05/25/23 16:18 Penicillins Allergy Rash/Hives Verified 05/25/23 16:18 Exam Intake and Output 05/25/23 05/25/23 05/25/23 06:59 14:59 22:59 Other: Weight 87.543 kg In general, this is a well-developed, well-nourished white female in significant discomfort as she is in active labor. Her heart has a regular rhythm and rate without murmur. Her lungs are clear to auscultation bilaterally in all palma. Her abdomen is gravid, nondistended, has normal active bowel sounds, soft, nontender aside from with contractions, and without any palpable masses aside from uterine fundus. Her extremities without any cyanosis, clubbing, or edema and are nontender to palpation bilaterally. Digital cervical examination performed by the nursing staff demonstrates her to be approximate 57 m dilated, 90% effaced with an unclear presenting part palpable small parts likely indicating feet. Results Result Diagrams: 05/25/23 16:40 Abnormal Lab Results - Last 24 Hours (Table) 05/25/23 Range/Units 16:40 WBC 13.5 H (3.8-10.6) k/uL Neutrophils # 10.7 H (1.3-7.7) k/uL Assessment and Plan (1) Breech presentation Current Visit: Yes Status: Acute Code(s): O32.1XX0 - MATERNAL CARE FOR BREECH PRESENTATION, UNSP SNOMED Code(s): 2308304 (2) Dichorionic diamniotic twin gestation Current Visit: Yes Status: Acute Code(s): O30.049 - TWIN , DICHORIONIC/DIAMNIOTIC, UNSP TRIMESTER SNOMED Code(s): 752707354 (3) Active labor at term Current Visit: Yes Status: Acute Code(s): XQA8437 - SNOMED Code(s): 14269318 Plan: The patient will be taken acutely to the operating room for urgent primary low- transverse section. Given her request for intraoperative bilateral tubal occlusion, she will have this performed using Filshie clips. She has reaffirmed on several occasions her desire for this procedure. Risks and complications of been thoroughly discussed and the period of time and she is understood and agreed to proceed. Pediatrics has been informed and will be present for evaluation of the infant's at the time of given the diagnosis of intrauterine growth restriction for both babies.
--- NOTE | 2023-05-25 18:12 | P.OP ---
Date of Procedure: 05/25/23 Preoperative Diagnosis: #1. 37-0/7 weeks twin intrauterine , active labor #2. Non-vertex presentation #3. intrauterine growth restriction for both babies #4. Undesired fertility Postoperative Diagnosis: Same Procedure(s) Performed: #1. Primary low-transverse section #2. Intraoperative bilateral tubal occlusion with Filshie clips Anesthesia: spinal Surgeon: Joel Brar Nutritional Services Director #1: Nona Escalante Estimated Blood Loss (ml): 330 IV fluids (ml): 900 Urine output (ml): 100 Pathology: other (Placenta for each infant (2)) Condition: stable Disposition: floor Operative Findings: Intraoperatively, the initial presentation of a was noted to be complete breech and she was delivered of a viable male infant with standard breech maneuvers weighing 4 lbs. 13 oz. with Apgars of 8 at 1 minute and 9 at 5 minutes. Baby B was found to be in transverse presentation had left and back up. She is a viable female infant weighing 4 lbs. 2 oz. with Apgars of 8 at 1 minute and 9 at 5 minutes delivered by breech extraction with standard breech maneuvers. The placentas were delivered manually, intact, and grossly normal with grossly normal three-vessel cords. The uterus, tubes, and ovaries were normal aside from a hemorrhagic appearing cyst of the right ovary approximately 3-4 cm in size. The newborns were taken to the nursery for evaluation by pediatrics given their size. Description of Procedure: The patient was prepped and draped in usual fashion after spinal anesthesia was administered by the anesthesiologist. A Pfannenstiel incision was made and extended into the abdominal cavity without difficulty. The bladder peritoneum was significantly distal to the intended site of incision was left intact. A 2 cm incision was made in the transverse plane of the lower uterine segment to enter the uterus at which time clear fluid was noted for baby A. Baby A was noted to be in complete breech presentation was delivered with standard breech maneuvers. The cord was doubly clamped, cut, and the passed resuscitative measures with weight and Apgars as noted above. Artificial rupture of membranes was carried out for baby B which noted meconium-stained fluid. Exploration demonstrated the fetus to be in transverse presentation with the head on the maternal left and back up. Decision was made to grasp the feet which was undertaken and the baby was then delivered by breech extraction using standard breech maneuvers. The cord was doubly clamped, cut, and the passed resuscitative measures with weight and Apgars as noted above. The placentas were delivered manually and intact as noted above. Uterus was exteriorized and the interior cavity the uterus was swept of any remaining placental or membranous fragments. The margins of the uterine incision were grasped with Garcia clamps and the incision closed in a single running locking stitch of 0 chromic catgut from margin to margin. Hemostasis appeared excellent. The posterior cul-de-sac was suctioned using a guard followed by laparotomy sponge. The patient reaffirmed her desire for permanent sterilization and a Filshie clip was firmly placed across each fallopian tube in the isthmic portion approximately 2-3 cm from the cornea bilaterally. The uterus was replaced within the abdominal cavity and the gutters were swept of any remaining blood, fluid, or clot. Hemostasis was excellent. The parietal peritoneum was loosely reapproximated in the layer of muscles examined and found to be hemostatic. The fascia was closed with a single running stitch of 0 Vicryl proceeding from margin to margin. Subcutaneous tissues were irrigated, made hemostatic with the Bovie, and reapproximated with a running stitch of 30 plain catgut. The skin was reapproximated with a running subcuticular stitch of 4-0 Vicryl followed by half-inch Steri-Strips placed with Mastisol. Estimated blood loss for the case was approximately 330 mL. There were no complications. All sponge, instrument, needle counts were correct. Both mother and infants are resting comfortably in recovery of the infant's are currently in special care nursery for observation by pediatrics.
[2023-05-25] MEDS: ACETAMINOPHEN TAB 500 MG TAB PO SCH (19:41)
[2023-05-25] MEDS: SENNOSIDES-DOCUSATE SODIUM 1 EACH TAB PO SCH (19:42)
[2023-05-25] MEDS: KETOROLAC 15 MG/ML 1 ML VIAL IVP PRN (23:36)
[2023-05-25] MEDS: IBUPROFEN 600 MG TAB PO SCH (23:57)
[2023-05-26] MEDS: LACTATED RINGERS 1,000 ML IV SCH ×2 (01:02→03:44)
[2023-05-26] MEDS: ACETAMINOPHEN TAB 500 MG TAB PO SCH ×4 (02:59→19:40)
[2023-05-26] MEDS: KETOROLAC 15 MG/ML 1 ML VIAL IVP PRN (04:59)
[2023-05-26] MEDS: IBUPROFEN 600 MG TAB PO SCH ×3 (07:44→18:21)
[2023-05-26 08:00] LABS: Basophils % (A) 0 %; Eosinophils # (A) 0.1 k/uL (0-0.7); Eosinophils % (A) 0 %; HCT 34.2 % (34.0-46.0); HGB 11.7 gm/dL (11.4-16.0); Lymphocytes # (A) 1.6 k/uL (1.0-4.8); Lymphocytes % (A) 7 %; MCH 28.2 pg (25.0-35.0); MCHC 34.1 g/dL (31.0-37.0); MCV 82.7 fL (80.0-100.0); Monocytes # (A) 0.8 k/uL (0-1.0); Monocytes % (A) 3 %; Neutrophils # (A) 21.6 k/uL (1.3-7.7); Neutrophils % (A) 89 %; Platelet Count 295 k/uL (150-450); RBC 4.14 m/uL (3.80-5.40); RDW 14.3 % (11.5-15.5); WBC 24.3 k/uL (3.8-10.6)
--- NOTE | 2023-05-26 08:50 | P.PNOBGPC ---
Subjective - Subjective Patient reports: Reports appetite normal, Reports voiding normally, Reports pain well controlled, Reports ambulating normally : doing well Objective - Vital Signs Latest vital signs: Vital Signs Temp Pulse Resp BP Pulse Ox 05/26/23 08:00 98.3 F 72 16 134/69 98 05/26/23 03:12 99.1 F 67 15 132/67 98 05/25/23 23:55 98.2 F 62 16 135/78 05/25/23 22:00 16 05/25/23 19:45 98.0 F 57 L 16 134/80 100 05/25/23 19:15 96.2 F L 57 L 16 129/77 98 05/25/23 18:45 18 100 05/25/23 18:44 58 L 16 119/69 100 05/25/23 18:30 57 L 16 117/58 100 05/25/23 18:15 66 16 115/62 100 05/25/23 18:00 60 16 113/63 100 05/25/23 17:50 16 100 05/25/23 17:45 56 L 16 114/53 100 Intake and Output 05/25/23 05/26/23 05/26/23 22:59 06:59 14:59 Intake Total 960 Output Total 602 400 250 Balance 358 -400 -250 Intake: Oral 960 Output: Urine 200 400 250 Uretheral (Simeon) 200 Estimated Blood Loss 330 Output, Quantitative 72 Blood Loss Other: Voiding Method Indwelling Catheter Indwelling Catheter Toilet # Voids 2 Weight 87.543 kg - Exam Extremities: Present: normal Abdomen: Present: normal appearance, soft. Absent: distention, tenderness Incision: Present: normal, dry, intact Uterus: Present: normal, firm (The uterine fundus as tonic and appropriate tender just below the umbilicus.) - Labs Labs: Abnormal Lab Results - Last 24 Hours (Table) 05/25/23 05/26/23 Range/Units 16:40 07:42 WBC 13.5 H 24.3 H (3.8-10.6) k/uL Neutrophils # 10.7 H 21.6 H (1.3-7.7) k/uL Assessment and Plan (1) Breech presentation Current Visit: Yes Status: Acute Code(s): O32.1XX0 - MATERNAL CARE FOR BREECH PRESENTATION, UNSP SNOMED Code(s): 8835345 (2) Dichorionic diamniotic twin gestation Current Visit: Yes Status: Acute Code(s): O30.049 - TWIN , DICHORIONIC/DIAMNIOTIC, UNSP TRIMESTER SNOMED Code(s): 256685982 (3) Active labor at term Current Visit: Yes Status: Acute Code(s): IYZ0006 - SNOMED Code(s): 68380610 (4) S/P section Current Visit: Yes Status: Acute Code(s): Z98.891 - HISTORY OF UTERINE SCAR FROM PREVIOUS SURGERY SNOMED Code(s): 570918405 Plan: Continue routine and postoperative care. The infants remained in the special care nursery for concerns regarding temperature regulation and feeding about her otherwise doing well. I have encouraged the patient and in the hallways routinely. She is tolerating regular diet at this point. Discharge could be as early as tomorrow but may depend upon when the infants are ready for discharge.
[2023-05-26] MEDS: SENNOSIDES-DOCUSATE SODIUM 1 EACH TAB PO SCH ×2 (09:07→19:40)
--- NOTE | 2023-05-26 10:58 | P.PN ---
Progress Note - Text Progress Note Date: 05/26/23 Postoperative day 1 status post section under spinal anesthesia, and i ntrathecal morphine given for postoperative analgesia, patient doing well, there is no anesthesia related complications, Patient had no headache, vital signs stable , (patient was seen at 07:10 Assessment and plan= postop day 1 status post , doing well there is no anesthesia related complication.
[2023-05-26] MEDS ORDERED: SIMETHICONE 80 MG CHEWABLE PO PRN (19:59)
[2023-05-26] MEDS: QUEtiapine 50 MG TAB PO SCH (23:58)
[2023-05-27] MEDS: IBUPROFEN 600 MG TAB PO SCH ×4 (02:26→20:31)
[2023-05-27] MEDS: ACETAMINOPHEN TAB 500 MG TAB PO SCH ×4 (05:56→23:54)
[2023-05-27 06:30] VITALS: RESP 16
[2023-05-27] MEDS: SENNOSIDES-DOCUSATE SODIUM 1 EACH TAB PO SCH ×2 (07:53→20:31)
--- NOTE | 2023-05-27 12:18 | P.PNOBGPC ---
Subjective - Subjective Patient reports: Reports appetite normal, Reports voiding normally, Reports pain well controlled, Reports ambulating normally : doing well, in NICU (Both twins doing well but need improvement with feeding and temperature control.) Objective - Vital Signs Latest vital signs: Vital Signs Temp Pulse Resp BP Pulse Ox 05/27/23 07:50 98.7 F 63 16 122/77 99 05/27/23 00:00 88 16 128/78 100 05/26/23 16:00 98.3 F 85 20 100 05/26/23 15:20 138/83 Intake and Output 05/26/23 05/27/23 05/27/23 22:59 06:59 14:59 Intake Total 480 Balance 480 Intake: Oral 480 Other: Voiding Method Toilet Toilet # Voids 3 2 1 - Exam Abdomen: Present: normal appearance, soft. Absent: distention, tenderness Incision: Present: normal, dry, intact Uterus: Present: normal, firm (The uterine fundus is tonic and appropriately tender below the umbilicus.) Assessment and Plan (1) Breech presentation Current Visit: Yes Status: Acute Code(s): O32.1XX0 - MATERNAL CARE FOR BREECH PRESENTATION, UNSP SNOMED Code(s): 5338203 (2) Dichorionic diamniotic twin gestation Current Visit: Yes Status: Acute Code(s): O30.049 - TWIN , DICHORIONIC/DIAMNIOTIC, UNSP TRIMESTER SNOMED Code(s): 209226037 (3) Active labor at term Current Visit: Yes Status: Acute Code(s): OMY9561 - SNOMED Code(s): 92331088 (4) S/P section Current Visit: Yes Status: Acute Code(s): Z98.891 - HISTORY OF UTERINE SCAR FROM PREVIOUS SURGERY SNOMED Code(s): 296126958 Plan: Continue routine and postoperative care. Patient will likely remain in the hospital for the full 4 days and postoperatively as the babies are likely to remain at least that long. I did encourage her to continue to amb ulate in the hallways routinely.
[2023-05-27] MEDS: QUEtiapine 50 MG TAB PO SCH (20:34)
[2023-05-28] MEDS: IBUPROFEN 600 MG TAB PO SCH ×2 (03:51→14:14)
[2023-05-28] MEDS: ACETAMINOPHEN TAB 500 MG TAB PO SCH ×2 (06:18→16:33)
[2023-05-28] MEDS: SENNOSIDES-DOCUSATE SODIUM 1 EACH TAB PO SCH ×2 (08:19→19:54)
--- NOTE | 2023-05-28 10:37 | P.PNOBGPC ---
Subjective - Subjective Principal diagnosis: s/p section Interval history: The patient is doing well this morning and had no acute events overnight. She has no complaints this morning. She reports minimal lochia, passing flatus, voiding without difficulty, ambulating, and eating/drinking without nausea or vomiting. The infant are in the nursery secondary to prematurity. They are being formula fed. She denies chest pain, shortness of breathing, fevers, or chills overnight. She denies pain or swelling in the legs. Patient reports: Reports appetite normal, Reports voiding normally, Reports pain well controlled, Reports ambulating normally Sherrill: doing well, in NICU Objective - Vital Signs Latest vital signs: Vital Signs Temp Pulse Resp BP Pulse Ox 05/28/23 08:00 98.2 F 78 16 126/76 05/27/23 23:57 88 16 136/75 97 05/27/23 16:00 97.9 F 98 16 132/87 Intake and Output 05/27/23 05/28/23 05/28/23 22:59 06:59 14:59 Other: # Voids 2 2 1 - Exam Extremities: Present: normal Abdomen: Present: normal appearance, soft Incision: Present: normal, dry, intact Uterus: Present: normal, firm Assessment and Plan Assessment: 28 year old POD#3 s/p section for malpresentation in di-di twins Plan: 1. Postoperative. Patient meeting all postoperative milestones appropriately. 2. Viable male and female infant. In the nursery for prematurity and feeding difficulties. Dispo: Anticipate discharge home tomorrow.
[2023-05-29] MEDS: IBUPROFEN 600 MG TAB PO SCH ×3 (00:20→10:19)
[2023-05-29] MEDS: QUEtiapine 50 MG TAB PO SCH ×2 (00:21→00:22)
[2023-05-29] MEDS: ACETAMINOPHEN TAB 500 MG TAB PO SCH (00:23)
--- NOTE | 2023-05-29 09:33 | P.DS ---
Providers Date of admission: 05/25/23 17:00 Expected date of discharge: 05/29/23 Attending physician: Joel Brar Primary care physician: Joel Brar [facility] Course: 28 year old POD#4 s/p section for malpresentation in di-di twins. The patient is doing well this morning and had no acute events overnight. She has no complaints this morning. She reports minimal lochia, passing flatus, voiding without difficulty, ambulating, and eating/drinking without nausea or vomiting. The twins are in the nursery for prematurity. She denies chest pain, shortness of breathing, fevers, or chills overnight. She denies pain or swelling in the legs. Postoperative restrictions are reviewed with the patient including pelvic rest for 6 weeks, no lifting heavier than 15 pounds for 6 weeks. The patient is encouraged to call the office if she experiences any heavy bleeding, foul-smelling discharge, breast complaints, or any if she has any other concerns. She will follow up in the office with Dr. Brar in 2 weeks for postoperative exam. She will go home with a 3-day supply of Oxycodone as well as Motrin and Tylenol. All questions are answered. Assessment: 28 year old POD#4 s/p section for malpresentation in di-di twins Patient Condition at Discharge: Good Plan - Discharge Summary New Discharge Prescriptions: New Ibuprofen [Motrin] 600 mg PO Q6HR PRN #30 tab PRN Reason: Mild Pain (Scale 1 To 3) oxyCODONE HCL [Roxicodone] 5 mg PO Q6HR PRN 3 Days #12 tab PRN Reason: Breakthrough Pain Acetaminophen Tab [Tylenol] 650 mg PO Q6H PRN #30 tab PRN Reason: Mild Pain (Scale 1 To 3) No Action Vit No.179/Iron/Folic [ Tablet] 1 each PO DAILY QUEtiapine [SEROquel] 50 mg PO HS Discharge Medication List Vit No.179/Iron/Folic [ Tablet] 1 each PO DAILY 02/17/23 [History] QUEtiapine [SEROquel] 50 mg PO HS 03/15/23 [History] Acetaminophen Tab [Tylenol] 650 mg PO Q6H PRN #30 tab 05/29/23 [Rx] Ibuprofen [Motrin] 600 mg PO Q6HR PRN #30 tab 05/29/23 [Rx] oxyCODONE HCL [Roxicodone] 5 mg PO Q6HR PRN 3 Days #12 tab 05/29/23 [Rx] Follow up Appointment(s)/Referral(s): Joel Brar MD [Primary Care Provider] - 2 Weeks (Incision check) Activity/Diet/Wound Care/Special Instructions: Instructions 1. Do not begin any exercise program for 3 weeks. 2. Do not resume sexual relations for 6 weeks or longer if uncomfortable. 3. You may take tub baths or showers at any time. 4. You may use tampons if desired after 6 weeks. 5. Keep any areas repaired with stitches clean and dry. 6. If you are not nursing, wear a good fitting, supportive bra during the day and limit fluid intake for at least 1 week to prevent breast engorgement. 7. Call the office, , within the next week to make appointment for your 6 week checkup if it has not already been made. 8. Report any of the following occurrences to the doctor promptly: a. Heavy, excessive bleeding b. Chills, fever c. Burning or frequency of urination d. Pain or redness and breasts if nursing e. Increasing pain or swelling of vulva (stitches). In addition to the above instructions, the following additional should be followed: 1. No heavy lifting or straining (exercising) until after 6 week checkup. 2. Keep abdominal incision clean and dry: You may wear a dressing if more comfortable. 3. Make office appointment for 2 weeks after delivery date. Discharge Disposition: HOME SELF-CARE
[2023-05-29] MEDS: SENNOSIDES-DOCUSATE SODIUM 1 EACH TAB PO SCH (10:15)
[2023-05-29 10:26] VITALS: BP 134/88; PULSE 114; TEMP 98
== END 2023-05-29 13:00 | disposition home or self-care (01) | DRG 539 ==
LOC: FBPOP 16:09 → 4FBP 17:00
PROVIDERS: ADMIT Obstetrics & Gynecology; ATTEND Obstetrics & Gynecology
PROC: 10907ZC Drainage of Amniotic Fluid, Therapeutic from Products of Conception, Via Natural or Artificial Opening (ICD-10-PCS; 2023-05-25)
PROC: 0UL70CZ Occlusion of Bilateral Fallopian Tubes with Extraluminal Device, Open Approach (ICD-10-PCS; 2023-05-25)
PROC: 10D07Z8 Extraction of Products of Conception, Other, Via Natural or Artificial Opening (ICD-10-PCS; 2023-05-25)
PROC: 10D00Z1 Extraction of Products of Conception, Low, Open Approach (ICD-10-PCS; principal; 2023-05-25 16:30)
DX: O32.1XX1 Maternal care for breech presentation, fetus 1 (principal); O30.043 Twin pregnancy, dichorionic/diamniotic, third trimester; Z37.2 Twins, both liveborn; O98.82 Other maternal infectious and parasitic diseases complicating childbirth; O32.2XX2 Maternal care for transverse and oblique lie, fetus 2; O99.824 Streptococcus B carrier state complicating childbirth; N83.201 Unspecified ovarian cyst, right side; O32.1XX2 Maternal care for breech presentation, fetus 2; O36.5931 Maternal care for other known or suspected poor fetal growth, third trimester, fetus 1; O36.5932 Maternal care for other known or suspected poor fetal growth, third trimester, fetus 2; O77.0 Labor and delivery complicated by meconium in amniotic fluid; Z30.2 Encounter for sterilization; Z86.19 Personal history of other infectious and parasitic diseases; Z3A.37 37 weeks gestation of pregnancy
CPT/HCPCS: 59025; 85025; 86850; 86900; 86901; 88307; 99213

== ENCOUNTER 2024-09-26 23:44 | Emergency (ER) | payer OTHER ==
[2024-09-26 23:50] VITALS: RESP 17; TEMP 98.2
--- NOTE | 2024-09-27 00:02 | ED ---
Overdose HPI - General Chief Complaint: Overdose Stated Complaint: Overdose Time Seen by Provider: 09/26/24 23:47 Source: patient Mode of arrival: EMS Limitations: no limitations - History of Present Illness Initial Comments: This patient is a 29-year-old woman brought to have evaluation after suspected overdose. The patient was found unconscious and had been administered Narcan by first responders. The the patient had total of 3 doses of Narcan administered, became alert and responsive. On arrival here the patient does admit to snorting and opioid she thought was heroin but suspects there may have been some fentanyl. 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 She denies intent to overdose. MD Complaint: accidental overdose -: minutes(s) Intent: other Context: Accidental Overdose: wanted to get high Treatments Prior to Arrival: oxygen, narcan - Related Data Home Medications Medication Instructions Recorded Confirmed Vit No.179/Iron/Folic 1 each PO DAILY 02/17/23 05/25/23 [ Tablet] QUEtiapine [SEROquel] 50 mg PO HS 03/15/23 05/25/23 Previous Rx's Medication Instructions Recorded Acetaminophen Tab [Tylenol] 650 mg PO Q6H PRN #30 tab 05/29/23 Ibuprofen [Motrin] 600 mg PO Q6HR PRN #30 tab 05/29/23 oxyCODONE HCL [Roxicodone] 5 mg PO Q6HR PRN 3 Days #12 tab 05/29/23 Allergies Allergy/AdvReac Type Severity Reaction Status Date / Time amoxicillin Allergy Rash/Hives Verified 09/26/24 23:50 codeine Allergy Rash/Hives Verified 09/26/24 23:50 Penicillins Allergy Rash/Hives Verified 09/26/24 23:50 Review of Systems ROS Statement: Those systems with pertinent positive or pertinent negative responses have been documented in the HPI. ROS Other: All systems not noted in ROS Statement are negative. Constitutional: Denies: fever, weakness Eyes: Denies: vision change Respiratory: Denies: cough, dyspnea Cardiovascular: Reports: chest pain. Denies: palpitations, orthopnea Gastrointestinal: Denies: abdominal pain, vomiting, diarrhea Genitourinary: Denies: dysuria, hematuria Musculoskeletal: Denies: back pain Skin: Denies: rash Neurological: Denies: headache, weakness Psychiatric: Denies: depression, auditory hallucinations, visual hallucinations, homicidal thoughts, suicidal thoughts Past Medical History Past Medical History: No Reported History Additional Past Medical History / Comment(s): HERPES VIRUS, Bipolar History of Any Multi-Drug Resistant Organisms: None Reported Past Surgical History: Tonsillectomy Additional Past Surgical History / Comment(s): Oral Surgery, [id number] 2016 Past Anesthesia/Blood Transfusion Reactions: No Reported Reaction Past Psychological History: Anxiety, Bipolar, Depression Smoking Status: Never smoker - Past Family History Father Family Medical History: Coronary Artery Disease (CAD) Additional Family Medical History / Comment(s): Heart Disease Mother Family Medical History: No Reported History Sister(s) Family Medical History: No Reported History Son(s) Family Medical History: No Reported History General Exam Limitations: no limitations General appearance: alert, in no apparent distress Head exam: Present: atraumatic, normocephalic Eye exam: Present: normal appearance. Absent: scleral icterus, conjunctival injection ENT exam: Present: normal oropharynx Neck exam: Present: normal inspection Respiratory exam: Present: normal lung sounds bilaterally. Absent: respiratory distress, wheezes, rales, rhonchi, stridor, accessory muscle use Cardiovascular Exam: Present: regular rate, normal rhythm, normal heart sounds. Absent: systolic murmur, diastolic murmur, rubs, gallop GI/Abdominal exam: Present: soft. Absent: distended, tenderness, guarding, rebound, rigid, mass Extremities exam: Present: normal inspection, normal capillary refill. Absent: pedal edema, calf tenderness Neurological exam: Present: alert Skin exam: Present: warm, dry, intact, normal color. Absent: rash Course Vital Signs 09/26/24 09/27/24 23:45 00:55 Temperature 98.2 F 98.2 F Pulse Rate 103 H 84 Respiratory 17 17 Rate Blood Pressure 122/99 131/77 O2 Sat by Pulse 100 100 Oximetry Medical Decision Making - Medical Decision Making Was pt. sent in by a medical professional or institution (, PA, NURSE EXAMINER, urgent care, hospital, or [place] health care facility...) When possible be specific @ -[No] Did you speak to anyone other than the patient for history (EMS, parent, family, police, friend...)? What history was obtained from this source @ -[No] Did you review nursing and triage notes (agree or disagree)? Why? @ -[I reviewed and agree with nursing and triage notes] Were old charts reviewed (outside hosp., previous admission, EMS record, old EKG, old radiological studies, urgent care reports/EKG's, [place] health care facility records)? Report findings @ -[No old charts were reviewed] Differential Diagnosis (chest pain, altered mental status, abdominal pain women, abdominal pain men, vaginal bleeding, weakness, fever, dyspnea, syncope, headache, dizziness, GI bleed, back pain, seizure, CVA, palpatations, mental health, musculoskeletal)? @ -[Differential Mental Health Depression, anxiety, bipolar, psychosis, schizophrenia, borderline personality, situational depression, adjustment disorder, behavioral disorder, brain tumor, malingering, substance abuse, encephalopathy, medication reaction, dementia, hypothyroidism, degenerative neurologic disorder, lupus.... This is not meant to be all-inclusive list EKG interpreted by me (3pts min.). @ -[As above] X-rays interpreted by me (1pt min.). @ -[None done] CT interpreted by me (1pt min.). @ -[None done] U/S interpreted by me (1pt. min.). @ -[None done] What testing was considered but not performed or refused? (CT, X-rays, U/S, labs)? Why? @ -[None] What meds were considered but not given or refused? Why? @ -[None] Did you discuss the management of the patient with other professionals (professionals i.e. , PA, NURSE EXAMINER, lab, RT, psych nurse, social service assistant, cementer oil well, t eacher, corporation officer, major case detective)? Give summary @ -[No] Was smoking cessation discussed for >3mins.? @ -[No] Was critical care preformed (if so, how long)? @ -[No] Were there social determinants of health that impacted care today? How? (Homelessness, low income, unemployed, alcoholism, drug addiction, transportation, low edu. Level, literacy, decrease access to med. care, residential, rehab)? @ -[No] Was there de-escalation of care discussed even if they declined (Discuss DNR or withdrawal of care, Hospice)? DNR status @ -[No] What co-morbidities impacted this encounter? (DM, HTN, Smoking, COPD, CAD, Cancer, CVA, ARF, Chemo, Hep., AIDS, mental health diagnosis, sleep apnea, morbid obesity)? @ -[None] Was patient admitted / discharged? Hospital course, mention meds given and route, prescriptions, significant lab abnormalities, going to OR and other pertinent info. @ -[The patient was brought directly to the resuscitation room and placed on cardiac monitors, interpreted as showing normal sinus rhythm with good oxygenation on the pulse oximetry. The patient was to be observed to ensure that as the Narcan wears off that she does not a lapse in consciousness. The patient is clinically stable, and decided that she was going to leave before the observation period ended. She does state that she has someone who can observe her should she develop any problems with loss consciousness/respiratory distress. She understands risk and decided to sign out AGAINST MEDICAL ADVICE Undiagnosed new problem with uncertain prognosis? @ -[No] Drug Therapy requiring intensive monitoring for toxicity (Heparin, Nitro, Insulin, Cardizem)? @ -[No] Were any procedures done? @ -[No] Diagnosis/symptom? @ -[Acute opioid overdose Acute, or Chronic, or Acute on Chronic? @ -[Acute Uncomplicated (without systemic symptoms) or Complicated (systemic symptoms)? @ -[Uncomplicated Side effects of treatment? @ -[No] Exacerbation, Progression, or Severe Exacerbation? @ -[No] Poses a threat to life or bodily function? How? (Chest pain, [place], [place], pneumonia, PE, COPD, DKA, ARF, appy, cholecystitis, CVA, Diverticulitis, Homicidal, Suicidal, threat to staff... and all critical care pts) @ -[Yes, as discussed above the patient decided to leave AGAINST MEDICAL ADVICE but has someone who can watch over - EKG Data EKG shows normal: sinus rhythm, axis (Borderline right axis), intervals (Normal), QRS complexes ( normal), ST-T waves ( normal) Rate: normal (Rate 95 bpm) Disposition Clinical Impression: Opioid overdose Disposition: LEFT AGAINST MEDICAL ADVICE Condition: Good Instructions (If sedation given, give patient instructions): Adult Overdose (ED) Is patient prescribed a controlled substance at d/c from ED?: No Referrals: None,Stated [REFERRING] - 1-2 days
[2024-09-27 01:03] VITALS: BP 131/77; PULSE 84
== END 2024-09-27 01:03 | disposition left against medical advice (07) ==
LOC: EC 23:44
DX: T40.2X1A Poisoning by other opioids, accidental (unintentional), initial encounter (principal); Z53.29 Procedure and treatment not carried out because of patient's decision for other reasons; Z88.0 Allergy status to penicillin; Z88.5 Allergy status to narcotic agent
CPT/HCPCS: 99284